=== PATIENT | male | born 1985 | race Caucasian/White ===

== ENCOUNTER 2016-11-20 10:59 | Emergency (ER) | payer MEDICARE, MEDICAID ==
[~2016-11-20] VITALS: Ht 175.3 cm; Wt 86.4 kg
[~2016-11-20 10:59] MED LIST: AMBIEN 5MG TABLE5 MG PO; BISAC-EVAC10 MG RC; CYMBALTA 60MG60 MG PO; KLONOPIN 1MG1 MG PO; MAXZIDE-25MG TA1 TAB PO; MIRALAX PA17 GM/Dose PO; MSIR30 MG PO; MUCINEX 60600 MG/TA1 PO; NEURONTIN800 MG/TAB PO; PRILOSEC 20MG20 MG PO; VALIUM 10MG/25 MG/ML IJ; VESICARE10 MG PO
[2016-11-20] MEDS ORDERED: NORCO 325 MG-51 TAB PO (12:06)
[2016-11-20 14:03] VITALS: BP 145/83; PULSE 71; TEMP 98
== END 2016-11-20 13:52 | disposition home or self-care (01) ==
LOC: COL.ER 10:59
DX: S00.83XA Contusion of other part of head, initial encounter (principal); G43.909 Migraine, unspecified, not intractable, without status migrainosus; W55.12XA Struck by horse, initial encounter; K08.89 Other specified disorders of teeth and supporting structures; I50.9 Heart failure, unspecified
CPT/HCPCS: J1885

== ENCOUNTER 2019-08-04 23:58 | Observation (INO) | payer MEDICARE, MEDICAID ==
[~2019-08-04] VITALS: Ht 175.3 cm; Wt 87.1 kg
[~2019-08-04 23:58] MED LIST changes: +00186-0370-20 IH; +ALEVE 220MG220 MG PO; +AMITRIPTYLINE H50 M1 PO; +CARTIA XT300 MG PO; +CEPHALEXIN500 M1 PO; +HCTZ 25MG TAB25 MG PO; +K-DUR20 MEQ PO; +LASIX 20MG TABL20 MG PO; +LUNESTA2 MG PO; +NORCO 325 MG-51 TAB PO; +RESTORIL 1515 MG/CAP PO; +TOPROL XL 50MG50 MG PO; +TYLENOL 325MG325 MG PO; -VALIUM 10MG/25 MG/ML IJ; +VALIUM 10MG/25 MG/ML PO; +ZANTAC 150MG T150 MG PO
[2019-08-05] VITALS (8 sets, daily range): BP systolic 108–149; BP diastolic 57–87; PULSE 47–73; TEMP 98.1
--- NOTE | 2019-08-05 01:30 | NUR ---
RECEIVED FROM ED PER W/C 34Y/O MALE WITH DX PAIN CONTROL FOR FOREIGN BODY RETAINED IN HIS BLADDER. IS ALERT AND ORIENTED X4. SL TO RIGHT WRIST WITHOUT REDNESS OR SWELLING.
[2019-08-05] MEDS ORDERED: SEROQUEL 1100 MG/TAB PO (01:56)
[2019-08-05] MEDS ORDERED: SEROQUEL 2525 MG/TAB PO (01:56)
[2019-08-05] MEDS ORDERED: VALIUM 5MG T5 MG/TAB PO (01:58)
[2019-08-05] MEDS ORDERED: NAPROSYN500 MG PO (02:03)
[2019-08-05] MEDS ORDERED: DEPAKOTE ER 25250 MG PO (02:04)
[2019-08-05] MEDS ORDERED: DEPAKOTE500 MG PO (02:05)
[2019-08-05] MEDS ORDERED: PRINIVIL10 MG PO (02:06)
--- NOTE | 2019-08-05 03:05 | NUR ---
MEDICATED WITH DILAUDID 0.25MG IVP FOR PAIN 10/10 TO BLADDER AND LEFT FLANK. IVF INFUSING TO RIGHT WRIST WITHOUT REDNESS OR SWELLING.
--- NOTE | 2019-08-05 03:50 | NUR ---
PATIENT REPORTS NO RELIEF WITH DILAUDID, MORPHINE 2MG IVP GIVEN AT THIS TIME.
--- NOTE | 2019-08-05 05:40 | NUR ---
Reports pain to left flank and abdomen 8/, Morphine 2mg IVP at this time.
--- NOTE | 2019-08-05 06:40 | NUR ---
Consent signed for surgery
--- NOTE | 2019-08-05 07:30 | NUR ---
Patient resting in bed at this time. Patient rouses easily and answers questions appropriately. Patient to pre op for suprapubic removal and replacement.
--- NOTE | 2019-08-05 09:35 | NUR ---
Patient returns to floor from PACU via bed. Patient is alert and oriented, answers questions appropriately. Patient complains of pain rated 6/10, administered PRN pain medication per order. Post op checks initated. Call light within reach.
--- NOTE | 2019-08-05 11:00 | NUR ---
Discharge teaching completed. INT removed, catheter intact, hemostasis achieved. Patient and family verbalize understanding and confirm recipt of all valuables and posessions. Patient escorted to ED entrance where he entered a private vehicle.
--- NOTE | 2019-08-05 12:55 | NUR ---
stopped by room several times but patient was not in room.
== END 2019-08-05 11:16 | disposition home or self-care (01) ==
LOC: COL.ER 23:58 → SURG 08-05 01:15
PROVIDERS: ADMIT Urology
DX: T19.1XXA Foreign body in bladder, initial encounter (principal); J45.909 Unspecified asthma, uncomplicated; I11.0 Hypertensive heart disease with heart failure; I50.9 Heart failure, unspecified; Z79.899 Other long term (current) drug therapy; Z88.1 Allergy status to other antibiotic agents; Z88.0 Allergy status to penicillin; N31.9 Neuromuscular dysfunction of bladder, unspecified; F32.9 Major depressive disorder, single episode, unspecified; F41.9 Anxiety disorder, unspecified
CPT/HCPCS: G0378; J0690; J1170; J2270; J2405; J2704; J7030

== ENCOUNTER 2019-10-03 21:11 | Observation (INO) | payer MEDICARE, MEDICAID ==
[~2019-10-03] VITALS: Ht 175.3 cm; Wt 92.8 kg
[~2019-10-03 21:11] MED LIST changes: +DEPAKOTE ER 25250 MG PO; +DEPAKOTE500 MG PO; +NAPROSYN500 MG PO; +PRINIVIL10 MG PO; +SEROQUEL 1100 MG/TAB PO; +SEROQUEL 2525 MG/TAB PO; +VALIUM 5MG T5 MG/TAB PO
--- NOTE | 2019-10-03 22:30 | NUR ---
Patient arrived to medical floor room 305 at this time. Call placed to Dr. De La Torre to notify him of patient's arrival.
[2019-10-03] MEDS ORDERED: MELATONIN5 M1 PO (23:06)
[2019-10-03] MEDS ORDERED: 00186-0370-20 IH (23:08)
[2019-10-03] MEDS ORDERED: PRILOSEC 20MG20 MG PO (23:09)
[2019-10-03] MEDS ORDERED: FLEXERIL 1010 MG/TAB PO (23:10)
[2019-10-03] MEDS ORDERED: ZOFRAN 4MG T4 MG/TAB PO (23:10)
[2019-10-04] VITALS (13 sets, daily range): BP systolic 108–187; BP diastolic 71–94; PULSE 63–111; TEMP 97.8–98.4
--- NOTE | 2019-10-04 00:36 | NUR ---
Patient assessment complete. Given PRN Morphine for pain to chest as requested, as well as nausea. Reports pain is sharp/throbbing to chest, and nothing helps except for pain medication. Alert and oriented x 4, and able to make needs known. Denies SOB and dyspnea. LS CTA. Respirations even and unlabored. HRR. Telemetry in place: sinus. Capillary refill less than 3 seconds. Non-tenting skin turgor. BSAx4. Abdomen soft and non-tender. Has chronic suprapubic catheter-urine clear and yellow. No edema. Planning to have Lexiscan in the morning. Notified patient that he is to be NPO. Patient does have a history of MRSA. Patient put on contact precautions. Notified Dr. De La Torre of history. Patient resting in bed with call light within reach.
[2019-10-04 00:38] LABS: TROPONIN-I < 0.012 ng/mL (0.000-0.035)
--- NOTE | 2019-10-04 02:30 | NUR ---
Patient given PRN Morphine at this time for chest pain, rated as a 5. Denies having any further questions, needs, or concerns at this time. Resting in bed with call light within reach.
--- NOTE | 2019-10-04 05:56 | NUR ---
Patient complaining of leve 6 pain to chest. Given PRN Morphine as requested for pain. No further complaints of pain or discomfort this shift. Has voiced no questions, needs, or concerns. Reminded of lexiscan ordered for today. Has been NPO except took a sip of water with medication. Resting in bed with call light within reach.
[2019-10-04 06:43] LABS: ANION GAP 9 mmol/L (7-16); BLOOD UREA NITROGEN 20 mg/dL (9-20); CALCIUM 8.9 mg/dL (8.4-10.2); CARBON DIOXIDE 28 mmol/L (22-30); CHLORIDE 106 mmol/L (98-107); CHOLESTEROL 185 mg/dL (120-200); CHOLESTEROL RISK RATIO 6.3; CREATININE, serum 1.07 (0.66-1.25); GLUCOSE 80 mg/dL (74-106); HDL CHOLESTEROL 29 mg/dL; LDL CHOLESTEROL 125 mg/dL; POTASSIUM 4.2 mmol/L (3.4-5.0); SODIUM 142 mmol/L (137-145); TRIGLYCERIDE 153 mg/dL
[2019-10-04 06:56] LABS: TROPONIN-I < 0.012 ng/mL (0.000-0.035)
--- NOTE | 2019-10-04 09:13 | NUR ---
Patient is A/O. Complained of 7/10 chest pain. I administed 1mg of morphine. Patient is bed resting. Patient have a generalized severe tremor.
--- NOTE | 2019-10-04 13:12 | NUR ---
Called by the charge attendant that the patient is having a seizure. Upon entry, AYAN Whelan and AYAN Maldonado at bedside. Pt actively convulsing, but talking to staff and oriented. Pt's extremities rigid and some diaphoresis present. Pt reporting he is in pain, PRN Morphine administered. Once pain meds administered pt calmed down and continues to converse with staff appropriately. He reports he has not had a true seizure in years, and that they are "typically much worse". Pt able to drink water without any complications and took Flexeril pill. Marisol were at bedside. Will continue to monitor.
--- NOTE | 2019-10-04 13:38 | NUR ---
Pt sitting up in bed talking with visitor at this time.
--- NOTE | 2019-10-04 14:37 | NUR ---
Initial visit; Patient thanked Offal Trimmer for looking in on him and offering spiritual care, comfort and encouragement.
--- NOTE | 2019-10-04 16:01 | NUR ---
Upon entry to patient room, he was on the phone talking without any tremor. Affect was pleasant and he was responsive. Patient began tremor, and requested for pain medication few minutes later. Stating pain was at 6/10 - Headache and chest pain.
--- NOTE | 2019-10-04 16:34 | NUR ---
TONY met with the patient to complete initial intake. The patient lives alone in [place]. The patient has a CPAP. The patient receives medication managment and cath changes from [facility] in [place] 1x weekly. The patient receives services 4 hours a week from [address] [place] [address]. The patient is in the process of changing PCPs to a provider in [place]. The patient receives medication from [facility] in [place]. The patient does not have advanced directives in the EMR and was not interested in a DPOA-HC form at this time. The patient's parents live in [place]. The patient plans to return home. There are no additional needs at this time.
--- NOTE | 2019-10-04 20:40 | NUR ---
Patient assessed at this time. Alert and oriented x 4, and able to make needs known. Called and requested PRN Morphine. When bringing to room, patient shaking/tremors/rigid. Patient talking to this nurse, stating that he was having tremors from "severe pain." Rated pain as level 9 to chest. Denies SOB and dyspnea. Stated that the only thing that would help was the IV Morphine. Given 1 mg PRN Morphine for pain. As soon as IV medication was given, patient stopped shaking/having tremors. Denies having SOB and dypsnea. LS CTA. Respirations even and unlabored. HRR. Telemetry in place: sinus rhythm. Capillary refill less than 3 seconds. Non-tenting skin turgor. BSAx4. Suprapubic catheter. No edema. Patient stated that he as unable to eat supper due to nausea. Given PRN Zofran as requested for nausea. Patient also given PRN Klonopin for anxiety. Denies having any other questions, needs, or concerns at this time. Resting in bed with call light within reach.
--- NOTE | 2019-10-04 23:40 | NUR ---
Patient complaining of level 7 pain to chest. Given PRN Morphine as requested for pain. Voices no further questions, needs, or concerns. Call light within reach.
--- NOTE | 2019-10-05 02:20 | NUR ---
Patient given PRN Morphine for chest pain at this time. Also complained of nausea, and given PRN Zofran.
[2019-10-05 02:34] VITALS: BP 134/86; PULSE 82; TEMP 98.1
--- NOTE | 2019-10-05 05:36 | NUR ---
Patient complaining of level 6 chest/neck pain. Given PRN Morphine as requested for pain. Denies having any further nausea at this time. Voices no further questions, needs, or concerns at this time. Resting in bed with call light within reach.
[2019-10-05 05:50] VITALS: BP 119/69; PULSE 66; TEMP 97.8
[2019-10-05 06:13] LABS: BASO # 0.1 (0.0-0.2); BASO % 1.3 % (0.0-2.0); EOS # 0.4 (0.0-0.7); EOS % 5.6 % (0-4.0); GRAN # 3.4 (1.4-6.5); GRAN % 52.5 % (42.2-75.2); HEMATOCRIT 41.4 % (42.0-52.0); HEMOGLOBIN 13.1 g/dl (13.5-18.0); LYMPH # 1.9 (1.2-3.4); LYMPH % 29.8 % (20.0-51.0); MEAN CELL VOLUME 89 fl (80.0-100.0); MEAN CORPUSCULAR HEMOGLOBIN 28 pg (27.0-31.0); MEAN CORPUSCULAR HGB CONC 32 g/dl (33.0-37.0); MEAN PLATELET VOLUME 9.2 fl (7.4-10.4); MONO # 0.7 (0.1-0.6); MONO % 10.2 % (1.7-9.3); PLATELET COUNT 254 K/mm3 (130-400); RED BLOOD COUNT 4.67 M/mm3 (4.20-5.60); REDCELL DISTRIBUTION WIDTH-CV 13.8 % (11.5-14.5)
[2019-10-05 06:24] LABS: CREATININE, serum 1.06 (0.66-1.25); POTASSIUM 3.9 mmol/L (3.4-5.0)
--- NOTE | 2019-10-05 06:54 | NUR ---
Report given to day shift nurse.
[2019-10-05 07:37] VITALS: BP 118/73; PULSE 78; TEMP 97.7
--- NOTE | 2019-10-05 10:45 | NUR ---
RT in seeing patient, he is resting in bed, calmly no movements with legs or arms. While administering Ativan prior to MRI patient requesting pain medications for pain to neck, head and back.
--- NOTE | 2019-10-05 11:23 | NUR ---
Patient is out of his room for MRI.
[2019-10-05 12:14] VITALS: BP 128/84; PULSE 83; TEMP 97.7
[2019-10-05] MEDS ORDERED: CARDIZEM CD 12120 MG PO (12:52)
[2019-10-05] MEDS ORDERED: ASPIRIN E.C. 8181 MG PO (13:45)
[2019-10-05 16:41] VITALS: BP 128/84; PULSE 91; TEMP 98.3
--- NOTE | 2019-10-05 17:15 | NUR ---
Derivatives Trader spoke with YORDAN Cedillo who advised patient would like to obtain a walker and wheelchair. TONY met with patient and patient's parents to advise that Medicare will typically only cover either walker or wheelchair, not both. Patient states he would like to obtain wheelchair. TONY presented DME Choice Form and patient chose [facility]. TONY completed order for wheelchair and obtained signature from Kalina Nurse Practitioner. TONY faxed facesheet, order, H&P, and PT note to [facility] who advised they had a wheelchair available for picker machine operator. TONY provided update to patient and patient's parents who state they will leave now to picker machine operator the wheelchair. Patient's parents also expressed concern about their ability to assist patient into his home when they drop him off. Alexy MarroquinLending Activities Supervisor contacted [facility] who will assist patient upon return home. Patient's parents to provide transportation home upon discharge. TONY faxed discharge orders to [facility]. Patient reported his Duff worker Bev plans on stopping by to check in tonight and his Home Health RN is scheduled to come to the home at 0900 tomorrow. No additional needs at this time.
--- NOTE | 2019-10-05 17:36 | NUR ---
Discharge paperwork and instructions reviewed with patient, [facility] dispatch number sent with patient for assistance into the home. Parents taking patient home and have picked up a wheelchair. Pt very anxious about going home and shaking, requesting IV ativan, administered per RAQUEL Dietz. IV to RAC dc'd, catheter tip intact. Pt wheeled out of facility at this time.
== END 2019-10-05 17:38 | disposition home or self-care (01) ==
LOC: MEDICAL 21:11
PROVIDERS: Physician Assistant; ADMIT Hospitalist
DX: R07.9 Chest pain, unspecified (principal); I25.10 Atherosclerotic heart disease of native coronary artery without angina pectoris; I25.2 Old myocardial infarction; G89.29 Other chronic pain; R10.9 Unspecified abdominal pain; I10 Essential (primary) hypertension; R56.9 Unspecified convulsions; F43.10 Post-traumatic stress disorder, unspecified; F41.9 Anxiety disorder, unspecified; I07.1 Rheumatic tricuspid insufficiency; F32.9 Major depressive disorder, single episode, unspecified; Z87.440 Personal history of urinary (tract) infections; Z88.1 Allergy status to other antibiotic agents; Z88.8 Allergy status to other drugs, medicaments and biological substances; Z88.2 Allergy status to sulfonamides; Z88.0 Allergy status to penicillin
CPT/HCPCS: A9500; A9585; G0378; J1650; J2060; J2270; J2405; J2785

== ENCOUNTER → 2019-10-17 | Outpatient (CLI) | payer MEDICARE, MEDICAID ==
[~2019-10-17] MED LIST changes: +ASPIRIN E.C. 8181 MG PO; +CARDIZEM CD 12120 MG PO; +FLEXERIL 1010 MG/TAB PO; +MELATONIN5 M1 PO; +ZOFRAN 4MG T4 MG/TAB PO
== END ==
LOC: BHSO 12:57
DX: F43.10 Post-traumatic stress disorder, unspecified (principal)

== ENCOUNTER 2019-11-03 02:14 | Emergency (ER) | payer MEDICARE, MEDICAID ==
[~2019-11-03] VITALS: Ht 175.3 cm; Wt 86.8 kg
[2019-11-03 02:40] VITALS: BP 136/93; TEMP 98.2
[2019-11-03 03:30] LABS: COLLECTION METHOD IN
[2019-11-03 03:37] LABS: MUCOUS Present /lpf; PH 6 (5-8); SQUAMOUS EPITHELIAL 0-2 /hpf; URINE APPEARANCE Hazy; URINE BACTERIA Rare /hpf; URINE BILIRUBIN Negative (NEGATIVE); URINE BLOOD 1+ (NEGATIVE); URINE COLOR Yellow; URINE GLUCOSE Negative (NEGATIVE); URINE KETONE Negative (NEGATIVE); URINE LEUKOCYTE ESTERASE 2+ (NEGATIVE); URINE NITRATE Negative (NEGATIVE); URINE PROTEIN(semi-quant) 2+ (NEGATIVE); URINE RBC 20-50 /hpf; URINE UROBILINOGEN Negative (NEGATIVE)
[2019-11-03] MEDS ORDERED: MACROBID 1100 MG/CAP PO (03:57)
[2019-11-03 04:23] VITALS: PULSE 104
== END 2019-11-03 04:23 | disposition home or self-care (01) ==
LOC: COL.ER 02:14
PROVIDERS: Physician Assistant
DX: N30.90 Cystitis, unspecified without hematuria (principal); I10 Essential (primary) hypertension; F41.9 Anxiety disorder, unspecified; F32.9 Major depressive disorder, single episode, unspecified; G47.00 Insomnia, unspecified; Z79.82 Long term (current) use of aspirin; Z87.440 Personal history of urinary (tract) infections; Z96.0 Presence of urogenital implants

== ENCOUNTER → 2019-11-17 | Outpatient (CLI) | payer MEDICARE, MEDICAID ==
[~2019-11-17] MED LIST changes: +MACROBID 1100 MG/CAP PO
== END ==
LOC: COL.RAD 12:01
DX: R13.10 Dysphagia, unspecified (principal); R10.9 Unspecified abdominal pain; R11.2 Nausea with vomiting, unspecified; R63.0 Anorexia; R68.81 Early satiety

== ENCOUNTER → 2019-11-24 | Outpatient (CLI) | payer MEDICARE, MEDICAID | LOC: COL.RAD 07:51 | DX: K82.8 Other specified diseases of gallbladder (principal); R11.2 Nausea with vomiting, unspecified; R13.10 Dysphagia, unspecified; R68.81 Early satiety ==

== ENCOUNTER 2019-12-05 06:50 | Inpatient (IN) | payer MEDICARE, MEDICAID ==
[~2019-12-05] VITALS: Ht 175.3 cm; Wt 94.9 kg
[2019-12-05] VITALS (9 sets, daily range): BP systolic 93–121; BP diastolic 52–77; PULSE 60–74; TEMP 97.5–98.6
[2019-12-05] MEDS ORDERED: ASPIRIN 81M81 MG/TA2 PO (08:15)
[2019-12-05] MEDS ORDERED: 00186-0370-20 IH (08:22)
[2019-12-05] MEDS ORDERED: SEROQUEL 200MG200 MG PO (08:23)
[2019-12-05] MEDS ORDERED: PRINIVIL40 MG PO (08:24)
[2019-12-05] MEDS ORDERED: PROTONIX 40MG T40 MG PO (08:25)
[2019-12-05] MEDS ORDERED: BUSPAR DIVIDOSE15 MG PO (08:26)
[2019-12-05] MEDS ORDERED: TOVIAZ4 MG PO (08:27)
[2019-12-05] MEDS ORDERED: TOPROL XL100 MG PO (08:28)
[2019-12-05] MEDS ORDERED: ULTRAM 50MG TAB50 MG PO (08:30)
[2019-12-05] MEDS ORDERED: PHENERGAN 25 TA25 MG PO (08:34)
[2019-12-05] MEDS ORDERED: MOTRIN 600600 MG/TAB PO (11:52)
[2019-12-05] MEDS ORDERED: NORCO 325 MG-51 TAB PO (11:53)
[2019-12-05 22:30] LABS: BASO % 0.2 % (0.0-2.0); GRAN # 8.4 (1.4-6.5); GRAN % 84.7 % (42.2-75.2); HEMATOCRIT 42.4 % (42.0-52.0); HEMOGLOBIN 13.3 g/dl (13.5-18.0); LYMPH # 0.7 (1.2-3.4); LYMPH % 7.2 % (20.0-51.0); MEAN CELL VOLUME 88 fl (80.0-100.0); MEAN CORPUSCULAR HEMOGLOBIN 28 pg (27.0-31.0); MEAN CORPUSCULAR HGB CONC 31 g/dl (33.0-37.0); MEAN PLATELET VOLUME 9.1 fl (7.4-10.4); MONO # 0.7 (0.1-0.6); MONO % 7.5 % (1.7-9.3); PLATELET COUNT 259 K/mm3 (130-400); RED BLOOD COUNT 4.81 M/mm3 (4.20-5.60); REDCELL DISTRIBUTION WIDTH-CV 13.3 % (11.5-14.5)
[2019-12-05 22:42] LABS: ALBUMIN 4.4 gm/dL (3.5-5.0); BILIRUBIN,TOTAL 0.5 mg/dL (0.0-1.0); CREATININE, serum 1.28 (0.66-1.25); MAGNESIUM 2.1 mg/dL (1.6-2.3); POTASSIUM 5.7 mmol/L (3.4-5.0); TOTAL PROTEIN 7.6 gm/dL (6.4-8.2)
[2019-12-05 23:09] LABS: PROLACTIN 14.1 ng/mL (3.7-17.9)
[2019-12-06] VITALS (117 sets, daily range): BP systolic 96–125; BP diastolic 53–65; PULSE 64–82; TEMP 97.7–98.7; O2SAT 94–100
[2019-12-06 06:42] LABS: COLLECTION METHOD IN
[2019-12-06 06:50] LABS: PH 5 (5-8); SQUAMOUS EPITHELIAL 0-2 /hpf; URINE APPEARANCE Clear; URINE BACTERIA Rare /hpf; URINE BILIRUBIN Negative (NEGATIVE); URINE BLOOD Negative (NEGATIVE); URINE COLOR Yellow; URINE GLUCOSE Negative (NEGATIVE); URINE KETONE Trace (NEGATIVE); URINE LEUKOCYTE ESTERASE 2+ (NEGATIVE); URINE NITRATE Negative (NEGATIVE); URINE PROTEIN(semi-quant) 1+ (NEGATIVE); URINE UROBILINOGEN Negative (NEGATIVE)
[2019-12-06 07:02] LABS: CREATININE, serum 1.04 (0.66-1.25); POTASSIUM 3.9 mmol/L (3.4-5.0)
[2019-12-06 07:13] LABS: MUCOUS Present /lpf
[2019-12-06 11:44] LABS: ARTERIAL BLD GAS O2 SATURATION 97.7 % (92-100); ARTERIAL BLD GAS TCO2 CT 22.5; ARTERIAL BLOOD GAS HCO3 21.4 meq/L (22-26); ARTERIAL BLOOD GAS PCO2 32.9 mmHg (35-45); ARTERIAL BLOOD GAS PO2 100.2 mmHg (80-100); ARTERIAL BLOOD GAS pH 7.43 (7.35-7.45)
[2019-12-06 12:11] LABS: BASO % 0.4 % (0.0-2.0); EOS % 0.3 % (0-4.0); GRAN # 7.2 (1.4-6.5); GRAN % 67.6 % (42.2-75.2); HEMATOCRIT 37.2 % (42.0-52.0); HEMOGLOBIN 11.8 g/dl (13.5-18.0); LYMPH # 2.1 (1.2-3.4); LYMPH % 19.4 % (20.0-51.0); MEAN CELL VOLUME 89 fl (80.0-100.0); MEAN CORPUSCULAR HEMOGLOBIN 28 pg (27.0-31.0); MEAN CORPUSCULAR HGB CONC 32 g/dl (33.0-37.0); MEAN PLATELET VOLUME 9.2 fl (7.4-10.4); MONO # 1.3 (0.1-0.6); MONO % 11.8 % (1.7-9.3); PLATELET COUNT 226 K/mm3 (130-400); RED BLOOD COUNT 4.18 M/mm3 (4.20-5.60); REDCELL DISTRIBUTION WIDTH-CV 13.3 % (11.5-14.5)
[2019-12-06 12:13] LABS: INR 1.1 (0.8-3.0); PROTHROMBIN TIME 12.7 SECONDS (9.7-12.8)
[2019-12-06 12:25] LABS: ALBUMIN 3.5 gm/dL (3.5-5.0); BILIRUBIN,TOTAL 0.2 mg/dL (0.0-1.0); CREATININE, serum 1.01 (0.66-1.25); MAGNESIUM 2.1 mg/dL (1.6-2.3); POTASSIUM 3.8 mmol/L (3.4-5.0); TOTAL PROTEIN 6.2 gm/dL (6.4-8.2)
[2019-12-07] VITALS: BP 107/62; PULSE 67; TEMP 97.3
[2019-12-07 04:00] VITALS: BP 110/72; PULSE 56; TEMP 97.4
[2019-12-07 09:03] VITALS: BP 121/88; PULSE 56
[2019-12-07 12:16] VITALS: BP 128/80; PULSE 58; TEMP 98.2
== END 2019-12-07 17:07 | disposition home or self-care (01) | DRG 418 ==
LOC: SDCO 06:50 → SURG 12:44 → SDCO 12-06 11:26 → ICU 12-06 11:28 → EU 12-06 13:30
PROVIDERS: Internal Medicine; Nurse Practitioner Family; Physician Assistant; ADMIT Surgery
PROC: 0FT44ZZ Resection of Gallbladder, Percutaneous Endoscopic Approach (ICD-10-PCS; principal; 2019-12-06)
PROC: BF121ZZ Fluoroscopy of Gallbladder using Low Osmolar Contrast (ICD-10-PCS; 2019-12-06)
DX: K81.1 Chronic cholecystitis (principal); N17.9 Acute kidney failure, unspecified; G40.909 Epilepsy, unspecified, not intractable, without status epilepticus; F32.9 Major depressive disorder, single episode, unspecified; F41.9 Anxiety disorder, unspecified; F43.10 Post-traumatic stress disorder, unspecified; I50.9 Heart failure, unspecified; H53.9 Unspecified visual disturbance; E87.5 Hyperkalemia; N31.9 Neuromuscular dysfunction of bladder, unspecified; I11.0 Hypertensive heart disease with heart failure; G47.33 Obstructive sleep apnea (adult) (pediatric); Z86.73 Personal history of transient ischemic attack (TIA), and cerebral infarction without residual deficits; Z86.711 Personal history of pulmonary embolism; Z79.82 Long term (current) use of aspirin
CPT/HCPCS: OP; 99222; 99233-AI; J0330; J0690; J1100; J1885; J1953; J2060; J2250; J2370; J2405; J2704; J3010; J7030; Q9967

== ENCOUNTER 2020-01-03 00:42 | Emergency (ER) | payer MEDICARE, MEDICAID ==
[~2020-01-03] VITALS: Ht 175.3 cm; Wt 81.8 kg
[~2020-01-03 00:42] MED LIST changes: +ASPIRIN 81M81 MG/TA2 PO; +BUSPAR DIVIDOSE15 MG PO; +MOTRIN 600600 MG/TAB PO; +PHENERGAN 25 TA25 MG PO; +PRINIVIL40 MG PO; +PROTONIX 40MG T40 MG PO; +SEROQUEL 200MG200 MG PO; +TOPROL XL100 MG PO; +TOVIAZ4 MG PO; +ULTRAM 50MG TAB50 MG PO
[2020-01-03 00:47] VITALS: TEMP 98.3
[2020-01-03 01:43] LABS: BASO # 0.1 (0.0-0.2); BASO % 0.9 % (0.0-2.0); EOS # 0.2 (0.0-0.7); EOS % 2.4 % (0-4.0); GRAN # 5.5 (1.4-6.5); GRAN % 69.7 % (42.2-75.2); HEMATOCRIT 43.2 % (42.0-52.0); HEMOGLOBIN 13.9 g/dl (13.5-18.0); LYMPH # 1.3 (1.2-3.4); LYMPH % 15.9 % (20.0-51.0); MEAN CELL VOLUME 87 fl (80.0-100.0); MEAN CORPUSCULAR HEMOGLOBIN 28 pg (27.0-31.0); MEAN CORPUSCULAR HGB CONC 32 g/dl (33.0-37.0); MEAN PLATELET VOLUME 9.1 fl (7.4-10.4); MONO # 0.8 (0.1-0.6); MONO % 10.7 % (1.7-9.3); PLATELET COUNT 215 K/mm3 (130-400); RED BLOOD COUNT 4.98 M/mm3 (4.20-5.60); REDCELL DISTRIBUTION WIDTH-CV 13.7 % (11.5-14.5)
[2020-01-03 01:55] LABS: ALANINE AMINOTRANSFERASE 21 U/L (4-49); ALBUMIN 4.7 gm/dL (3.5-5.0); ALKALINE PHOSPHATASE 70 U/L (50-136); ANION GAP 11 mmol/L (7-16); AST,SGOT 24 U/L (15-37); BILIRUBIN,TOTAL 0.4 mg/dL (0.0-1.0); BLOOD UREA NITROGEN 10 mg/dL (9-20); CALCIUM 9.7 mg/dL (8.4-10.2); CARBON DIOXIDE 25 mmol/L (22-30); CHLORIDE 103 mmol/L (98-107); GLUCOSE 100 mg/dL (74-106); SODIUM 139 mmol/L (137-145)
[2020-01-03 02:00] LABS: COLLECTION METHOD IN
[2020-01-03 02:00] LABS: C-REACTIVE PROTEIN < 0.5 mg/dL (0.0-0.9)
[2020-01-03 02:07] LABS: MUCOUS Present /lpf; PH 5 (5-8); SQUAMOUS EPITHELIAL None Seen /hpf; URINE APPEARANCE Hazy; URINE BACTERIA Rare /hpf; URINE BILIRUBIN Negative (NEGATIVE); URINE BLOOD Negative (NEGATIVE); URINE COLOR Yellow; URINE GLUCOSE Negative (NEGATIVE); URINE KETONE Negative (NEGATIVE); URINE LEUKOCYTE ESTERASE 3+ (NEGATIVE); URINE NITRATE Positive (NEGATIVE); URINE PROTEIN(semi-quant) Negative (NEGATIVE); URINE UROBILINOGEN Negative (NEGATIVE)
[2020-01-03 02:32] VITALS: BP 136/99; PULSE 82
[2020-01-05] MEDS ORDERED: MONUROL 3 GM3 G/PKT PO (14:39)
== END 2020-01-03 02:32 | disposition home or self-care (01) ==
LOC: COL.ER 00:42
PROVIDERS: Nurse Practitioner
DX: N39.0 Urinary tract infection, site not specified (principal); F32.9 Major depressive disorder, single episode, unspecified; F41.9 Anxiety disorder, unspecified; F43.10 Post-traumatic stress disorder, unspecified; I11.0 Hypertensive heart disease with heart failure; I50.9 Heart failure, unspecified; Z96.0 Presence of urogenital implants; Z79.899 Other long term (current) drug therapy; Z79.82 Long term (current) use of aspirin; Z79.51 Long term (current) use of inhaled steroids

== ENCOUNTER → 2020-01-23 | Outpatient (CLI) | payer MEDICARE, MEDICAID ==
[~2020-01-23] MED LIST changes: +MONUROL 3 GM3 G/PKT PO
== END ==
LOC: BHSO 13:23
DX: F43.10 Post-traumatic stress disorder, unspecified (principal)
CPT/HCPCS: G0463

== ENCOUNTER 2020-01-31 18:21 | Emergency (ER) | payer MEDICARE, MEDICAID ==
[~2020-01-31] VITALS: Ht 175.3 cm; Wt 85.9 kg
[2020-01-31 18:35] VITALS: TEMP 99.7
[2020-01-31 19:40] LABS: ALANINE AMINOTRANSFERASE 18 U/L (4-49); ALBUMIN 4.3 gm/dL (3.5-5.0); ALKALINE PHOSPHATASE 54 U/L (50-136); ANION GAP 10 mmol/L (7-16); AST,SGOT 26 U/L (15-37); BILIRUBIN,TOTAL 0.5 mg/dL (0.0-1.0); BLOOD UREA NITROGEN 11 mg/dL (9-20); CALCIUM 9.3 mg/dL (8.4-10.2); CARBON DIOXIDE 25 mmol/L (22-30); CHLORIDE 105 mmol/L (98-107); CREATINE KINASE 118 U/L (55-170); CREATININE, serum 0.94 (0.66-1.25); GLUCOSE 87 mg/dL (74-106); POTASSIUM 3.9 mmol/L (3.4-5.0); SODIUM 140 mmol/L (137-145); TOTAL PROTEIN 7.7 gm/dL (6.4-8.2)
[2020-01-31 19:42] LABS: BASO # 0.1 (0.0-0.2); BASO % 1.1 % (0.0-2.0); EOS # 0.2 (0.0-0.7); EOS % 3.1 % (0-4.0); GRAN # 3.8 (1.4-6.5); HEMATOCRIT 40.6 % (42.0-52.0); LYMPH # 1.5 (1.2-3.4); LYMPH % 23.7 % (20.0-51.0); MEAN CELL VOLUME 87 fl (80.0-100.0); MEAN CORPUSCULAR HEMOGLOBIN 28 pg (27.0-31.0); MEAN CORPUSCULAR HGB CONC 32 g/dl (33.0-37.0); MEAN PLATELET VOLUME 8.9 fl (7.4-10.4); MONO # 0.6 (0.1-0.6); PLATELET COUNT 252 K/mm3 (130-400); RED BLOOD COUNT 4.67 M/mm3 (4.20-5.60); REDCELL DISTRIBUTION WIDTH-CV 13.3 % (11.5-14.5)
[2020-01-31 19:52] LABS: TROPONIN-I < 0.012 ng/mL (0.000-0.035)
[2020-01-31] MEDS ORDERED: NORCO 325 MG-51 TAB PO (20:35)
[2020-01-31 21:29] VITALS: BP 140/95; PULSE 80
== END 2020-01-31 21:29 | disposition home or self-care (01) ==
LOC: COL.ER 18:21
PROVIDERS: Emergency Medicine
DX: R07.81 Pleurodynia (principal); I10 Essential (primary) hypertension; K21.9 Gastro-esophageal reflux disease without esophagitis; F41.9 Anxiety disorder, unspecified; F43.10 Post-traumatic stress disorder, unspecified; Z86.718 Personal history of other venous thrombosis and embolism; Z86.711 Personal history of pulmonary embolism; Z79.82 Long term (current) use of aspirin; Z90.49 Acquired absence of other specified parts of digestive tract
CPT/HCPCS: J1885; J3010; J7030

== ENCOUNTER → 2020-02-07 | Outpatient (CLI) | payer MEDICARE, MEDICAID | LOC: COL.LAB 08:00 | DX: Z20.828 Contact with and (suspected) exposure to other viral communicable diseases (principal) ==

== ENCOUNTER → 2020-02-08 | Outpatient (CLI) | payer MEDICARE, MEDICAID | LOC: COL.RAD 09:58 | DX: K29.70 Gastritis, unspecified, without bleeding (principal); R19.7 Diarrhea, unspecified; Z90.49 Acquired absence of other specified parts of digestive tract | CPT/HCPCS: Q9967 ==

== ENCOUNTER 2020-02-12 08:23 | Day surgery (SDC) | payer MEDICARE, MEDICAID ==
[~2020-02-12] VITALS: Ht 175.3 cm; Wt 87.5 kg
[2020-02-12 08:56] VITALS: BP 115/89; PULSE 77; TEMP 98.7
[2020-02-12 10:20] VITALS: BP 93/67; PULSE 72; TEMP 98
--- NOTE | 2020-02-12 10:20 | NUR ---
Pt returned to [facility]. Ambulated from cart to recliner. VSS-see flowsheet. Pt given pepsi per request. Pt appears drowsy, legs elevated in recliner to rest. Friend brought to room to visit and be present when Dr Salmeron discusses the procedure results. Call light in reach. Pt denies needs at this time.
[2020-02-12 10:35] VITALS: BP 88/72; PULSE 75
[2020-02-12 10:50] VITALS: BP 94/47; PULSE 74
[2020-02-12 11:05] VITALS: BP 96/52; PULSE 72
--- NOTE | 2020-02-12 11:20 | NUR ---
VS remain stable. IV removed with pressure dressing applied to site. Tolerating pepsi. DC teaching completed, pt verbalized understanding. After pt dressed, taken via wheelchair to exit of facility and pt ambulated to private vehicle with friend to drive pt home.
== END 2020-02-12 11:20 | disposition home or self-care (01) ==
LOC: SDCO 08:23
DX: K52.9 Noninfective gastroenteritis and colitis, unspecified (principal); K64.8 Other hemorrhoids; K62.89 Other specified diseases of anus and rectum; R11.2 Nausea with vomiting, unspecified; R19.4 Change in bowel habit; Z88.1 Allergy status to other antibiotic agents; Z88.8 Allergy status to other drugs, medicaments and biological substances; Z90.49 Acquired absence of other specified parts of digestive tract; Z79.82 Long term (current) use of aspirin; Z79.891 Long term (current) use of opiate analgesic; Z11.59 Encounter for screening for other viral diseases
CPT/HCPCS: J2250; J2704; J7030

== ENCOUNTER → 2020-03-18 | Outpatient (CLI) | payer MEDICARE, MEDICAID | LOC: BHSO 10:22 | DX: F43.10 Post-traumatic stress disorder, unspecified (principal) | CPT/HCPCS: G0463 ==

== ENCOUNTER 2020-05-06 18:54 | Emergency (ER) | payer MEDICARE, MEDICAID ==
[~2020-05-06] VITALS: Ht 175.3 cm; Wt 86.4 kg
[2020-05-06 19:03] VITALS: TEMP 98.4
[2020-05-06 19:37] LABS: BASO # 0.1 (0.0-0.2); BASO % 1.5 % (0.0-2.0); EOS # 0.1 (0.0-0.7); EOS % 1.3 % (0-4.0); GRAN % 66.6 % (42.2-75.2); HEMATOCRIT 40.7 % (42.0-52.0); HEMOGLOBIN 13.4 g/dl (13.5-18.0); LYMPH # 1.2 (1.2-3.4); LYMPH % 20.3 % (20.0-51.0); MEAN CELL VOLUME 85 fl (80.0-100.0); MEAN CORPUSCULAR HEMOGLOBIN 28 pg (27.0-31.0); MEAN CORPUSCULAR HGB CONC 33 g/dl (33.0-37.0); MEAN PLATELET VOLUME 8.6 fl (7.4-10.4); MONO # 0.6 (0.1-0.6); MONO % 9.8 % (1.7-9.3); PLATELET COUNT 290 K/mm3 (130-400); REDCELL DISTRIBUTION WIDTH-CV 12.7 % (11.5-14.5)
[2020-05-06 19:47] LABS: ALANINE AMINOTRANSFERASE 18 U/L (4-49); ALBUMIN 4.4 gm/dL (3.5-5.0); ALKALINE PHOSPHATASE 74 U/L (50-136); ANION GAP 11 mmol/L (7-16); AST,SGOT 24 U/L (15-37); BILIRUBIN,TOTAL 0.5 mg/dL (0.0-1.0); BLOOD UREA NITROGEN 5 mg/dL (9-20); CARBON DIOXIDE 28 mmol/L (22-30); CHLORIDE 100 mmol/L (98-107); COLLECTION METHOD IN; CREATININE, serum 1.05 (0.66-1.25); GLUCOSE 94 mg/dL (74-106); SODIUM 139 mmol/L (137-145); TOTAL PROTEIN 7.7 gm/dL (6.4-8.2)
[2020-05-06 19:55] LABS: PH 8 (5-8); SQUAMOUS EPITHELIAL None Seen /hpf; URINE APPEARANCE Clear; URINE BACTERIA Moderate /hpf; URINE BILIRUBIN Negative (NEGATIVE); URINE BLOOD Negative (NEGATIVE); URINE COLOR Straw; URINE GLUCOSE Negative (NEGATIVE); URINE KETONE Negative (NEGATIVE); URINE LEUKOCYTE ESTERASE 2+ (NEGATIVE); URINE NITRATE Negative (NEGATIVE); URINE PROTEIN(semi-quant) Negative (NEGATIVE); URINE RBC 0-2 /hpf; URINE UROBILINOGEN Negative (NEGATIVE)
[2020-05-06 19:58] LABS: TROPONIN-I < 0.012 ng/mL (0.000-0.035)
[2020-05-06] MEDS ORDERED: BACTRIM DS 8001 TAB PO ×2 (20:31)
[2020-05-06 20:47] VITALS: BP 144/86; PULSE 68
== END 2020-05-06 20:45 | disposition home or self-care (01) ==
LOC: COL.ER 18:54
PROVIDERS: Nurse Practitioner Primary Care
DX: R07.89 Other chest pain (principal); N39.0 Urinary tract infection, site not specified; F32.9 Major depressive disorder, single episode, unspecified; F41.9 Anxiety disorder, unspecified; F43.10 Post-traumatic stress disorder, unspecified; I11.0 Hypertensive heart disease with heart failure; I50.9 Heart failure, unspecified; Z79.82 Long term (current) use of aspirin
CPT/HCPCS: J2270; J2405; J7030

== ENCOUNTER 2020-05-14 21:44 | Observation (INO) | payer MEDICARE, MEDICAID ==
[~2020-05-14] VITALS: Ht 175.3 cm; Wt 95.5 kg
[~2020-05-14 21:44] MED LIST changes: +BACTRIM DS 8001 TAB PO
[2020-05-14 22:27] LABS: COLLECTION METHOD IN
[2020-05-14 22:30] LABS: HEMATOCRIT 41.7 % (42.0-52.0); HEMOGLOBIN 13.6 g/dl (13.5-18.0); MEAN CELL VOLUME 86 fl (80.0-100.0); MEAN CORPUSCULAR HEMOGLOBIN 28 pg (27.0-31.0); MEAN CORPUSCULAR HGB CONC 33 g/dl (33.0-37.0); PLATELET COUNT 294 K/mm3 (130-400); RED BLOOD COUNT 4.84 M/mm3 (4.20-5.60); REDCELL DISTRIBUTION WIDTH-CV 13.1 % (11.5-14.5)
[2020-05-14 22:34] LABS: MUCOUS Present /lpf; PH 5 (5-8); SQUAMOUS EPITHELIAL 0-2 /hpf; URINE APPEARANCE Hazy; URINE BACTERIA Rare /hpf; URINE BILIRUBIN Negative (NEGATIVE); URINE BLOOD 3+ (NEGATIVE); URINE COLOR Yellow; URINE GLUCOSE Negative (NEGATIVE); URINE KETONE Negative (NEGATIVE); URINE LEUKOCYTE ESTERASE 2+ (NEGATIVE); URINE NITRATE Negative (NEGATIVE); URINE PROTEIN(semi-quant) 1+ (NEGATIVE); URINE RBC >50 /hpf; URINE UROBILINOGEN Negative (NEGATIVE)
[2020-05-14 22:43] LABS: ALANINE AMINOTRANSFERASE 24 U/L (4-49); ALBUMIN 4.9 gm/dL (3.5-5.0); ALKALINE PHOSPHATASE 66 U/L (50-136); ANION GAP 12 mmol/L (7-16); AST,SGOT 26 U/L (15-37); BILIRUBIN,TOTAL 0.5 mg/dL (0.0-1.0); BLOOD UREA NITROGEN 19 mg/dL (9-20); CALCIUM 9.6 mg/dL (8.4-10.2); CARBON DIOXIDE 24 mmol/L (22-30); CHLORIDE 100 mmol/L (98-107); CREATININE, serum 1.58 (0.66-1.25); GLUCOSE 134 mg/dL (74-106); SODIUM 135 mmol/L (137-145); TOTAL PROTEIN 8.4 gm/dL (6.4-8.2)
[2020-05-14 22:45] LABS: C-REACTIVE PROTEIN < 0.5 mg/dL (0.0-0.9); POTASSIUM 5.8 mmol/L (3.4-5.0)
[2020-05-14 23:27] LABS: BAND 2 % (0-10); LYMPHOCYTE 5 % (20.0-51.0); NEUTROPHILS 90 % (42.0-75.2); PLATELET ESTIMATE NORMAL (NORMAL)
[2020-05-15 01:53] VITALS: BP 129/83; PULSE 104; TEMP 98.1
[2020-05-15 03:05] LABS: CREATININE, serum 1.48 (0.66-1.25); POTASSIUM 5.4 mmol/L (3.4-5.0)
[2020-05-15] MEDS ORDERED: SEROQUEL 2525 MG/TAB PO (03:14)
[2020-05-15 04:00] VITALS: BP 131/67; PULSE 82; TEMP 97.8
--- NOTE | 2020-05-15 05:03 | NUR ---
0115 - RECEIVED REPORT FROM AYAN EUCEDA. 0140 - PT ARRIVED IN ROOM, ADMIT INTIAL DONE. PT COMPLAINING THAT HE IS HAVING SOME ANXIETY AND NEEDS A MEDICATION FOR IT. THIS RN ASKED AYAN EUCEDA IF SHE COULD ED DOCTOR FOR SOME MEDICATION AND MD ORDERD SEROQUEL AND WAS GIVEN TO PT. PT INITIALLY UPSET THAT WE ARE ONLY GIVING HIM SEROQUEL. PER PT, SEROQUEL DOES NOT WORK FOR HIM. THIS RECORDER OF DEEDS TOLD HIM THAT WE ARE GONNA TRY IT FIRST AND WILL RE EVALUATE AFTER AN HOUR OR SO. 0200 - PT COMPLAINING THAT HE COULD NOT STAND THE ROOM HE IS CLAUSTROPHOBIC AND FEELS ISOLATED IN THAT ROOM. THIS WAS RELAYED TO CHARGE NURSE AND PT GOT TRANSFERED TO [facility]. PT THEN WAS COMPLAINING OF PAIN AND WAS GIVEN DILAUDID PER ORDER. PT VERBALZING THAT HE WANTS HIS MEDICATION CHANGE MORPHINE WORKS BETTER FOR HIM AND WANTS SOMETHING FOR HIS ANXIETY WELL. "I GET SEIZURES WHEN I GET TOO ANXIOUS" VERBALIZED BY PT. WHEN RN TOLD PT THAT I WILL CALL DR. CAMARENA, PT GOT WORKED UP AND REFUSING FOR THIS RECORDER OF DEEDS TO CALL . HE IS ALSO REFUSING DR'S CARE AND WANTED TO TALK TO PACKING SUPERVISOR. AFTER TALKING TO PACKING SUPERVISOR, PT AGREED FOR THIS RECORDER OF DEEDS TO CALL DR. CAMARENA AND GOT ORDERS FOR MORPHINE AND ATIVAN WHICH MADE PT HAPPY.
--- NOTE | 2020-05-15 07:40 | NUR ---
Patient resting in bed. Reports increased pain after being up to the bathroom. Request Prn morphine for flank pain & spasms. Suprapubic cath in place to DD. Ivf per orders. He tolerated breakfast, but Reports chronic nausea. Will closely montior.
[2020-05-15 07:42] VITALS: BP 114/62; PULSE 92; TEMP 98.3
--- NOTE | 2020-05-15 10:00 | NUR ---
Patietn feeling anxious, medication per orders. Pre medicated with benydryl prior to given antibioitc to prevent itching.
--- NOTE | 2020-05-15 10:28 | NUR ---
Initial visit; Patient agitated and angry. Wood Hacker attempted to diffuse his anger after she listened to his complaints. Wood Hacker suggested he make his requests known to others in a calmer mor civil way and he will receive better results. Wood Hacker offered a blessing and wished him well. At the time of her departure patient seemed calmer.
--- NOTE | 2020-05-15 10:48 | NUR ---
Insurance Broker met with the patient to complete initial intake. The patient lives alone in [place]. The patient has walking stick and a CPAP. The patient is independent with ADLs. The patient's PCP is Dr. Ashley Donald and patient has medications delivered from [facility] in [place]. The patient does not have advanced directives. He is not and does not have children. His parents are Nestor and Bee # [phone]. The patient is currenlty staying at [facility] and plans to return there are discharge, possibly this day. The patient was concerned about his reoccuring infection since February. TONY and the patient's nurse collaborated the above information. TONY contacted [facility] and they do confirm that they have a bed for the patient to return to if he discharges this day. There are no additional needs at this time.
[2020-05-15 11:45] VITALS: BP 124/55; PULSE 85; TEMP 98.6
--- NOTE | 2020-05-15 11:45 | NUR ---
Spoke with [facility] telehealth case manager, they will pick patient up in 10 minutes. All paper work completed. Patient frustrated & upset with plan of care. had a lengthy discussion with patient. Spoke with Pearl wolf- she also spoke with patient. Reviewed discharge paperwork with patient, He had minimal interest. Int x2 DC. Patient denies any further education on suprapubic cath. Patient ambulated out with all belongings.
--- NOTE | 2020-05-15 11:53 | NUR ---
Patient reports elevated pain, continues to refuse azo. Reports flomax did not help. He continues to be frustrated. Wanted to speak with social work i had let them know.
--- NOTE | 2020-05-15 12:45 | NUR ---
Ride from [facility] here to take patietn back to the crisis center.
== END 2020-05-15 16:08 | disposition psychiatric hospital, planned readmission (93) ==
LOC: COL.ER 21:44 → SURG 23:08 → JCC 23:12
PROVIDERS: Emergency Medicine; ADMIT Urology
DX: R10.2 Pelvic and perineal pain (principal); Z88.0 Allergy status to penicillin; Z88.8 Allergy status to other drugs, medicaments and biological substances; Z88.1 Allergy status to other antibiotic agents
CPT/HCPCS: G0378; J0610; J0692; J1170; J1200; J1815; J1940; J2060; J2270; J2405; J3260; J7030

== ENCOUNTER → 2020-05-23 | Outpatient (CLI) | payer MEDICARE, MEDICAID ==
[2020-05-23 12:18] LABS: COLLECTION METHOD CLEAN CATCH
[2020-05-23 12:27] LABS: PH 6 (5-8); SQUAMOUS EPITHELIAL None Seen /hpf; URINE APPEARANCE Clear; URINE BACTERIA Rare /hpf; URINE BILIRUBIN Negative (NEGATIVE); URINE BLOOD 2+ (NEGATIVE); URINE COLOR Yellow; URINE GLUCOSE Negative (NEGATIVE); URINE KETONE Negative (NEGATIVE); URINE LEUKOCYTE ESTERASE 1+ (NEGATIVE); URINE NITRATE Negative (NEGATIVE); URINE PROTEIN(semi-quant) Negative (NEGATIVE); URINE UROBILINOGEN Negative (NEGATIVE)
== END ==
LOC: COL.LAB 11:46
PROVIDERS: Internal Medicine Infectious Disease
DX: N39.0 Urinary tract infection, site not specified (principal); Z86.14 Personal history of Methicillin resistant Staphylococcus aureus infection; Z86.19 Personal history of other infectious and parasitic diseases

== ENCOUNTER → 2020-06-03 | Outpatient (CLI) | payer MEDICARE, MEDICAID ==
[2020-06-03 17:23] LABS: COLLECTION METHOD IN
[2020-06-03 17:49] LABS: MUCOUS Present /lpf; PH 6 (5-8); SQUAMOUS EPITHELIAL None Seen /hpf; URINE APPEARANCE Hazy; URINE BACTERIA Rare /hpf; URINE BILIRUBIN Negative (NEGATIVE); URINE BLOOD Negative (NEGATIVE); URINE COLOR Yellow; URINE GLUCOSE Negative (NEGATIVE); URINE KETONE Negative (NEGATIVE); URINE LEUKOCYTE ESTERASE 3+ (NEGATIVE); URINE NITRATE Negative (NEGATIVE); URINE PROTEIN(semi-quant) Negative (NEGATIVE); URINE RBC 0-2 /hpf; URINE UROBILINOGEN Negative (NEGATIVE); URINE WBC >50 /hpf
== END ==
LOC: COL.LAB 12:17
PROVIDERS: Nurse Practitioner
DX: N39.0 Urinary tract infection, site not specified (principal); Z86.14 Personal history of Methicillin resistant Staphylococcus aureus infection; Z86.19 Personal history of other infectious and parasitic diseases

== ENCOUNTER 2020-06-04 21:34 | Outpatient (RCR) | payer MEDICARE, MEDICAID ==
[2020-06-04 21:38] VITALS: BP 140/81; PULSE 81; TEMP 97.3
[2020-06-07] MEDS ORDERED: INVANZ INJ1 G/VIAL IV (08:57)
== END 2020-06-11 15:46 ==
LOC: EUO 06-05 21:34
DX: N39.0 Urinary tract infection, site not specified (principal); N31.9 Neuromuscular dysfunction of bladder, unspecified; F32.9 Major depressive disorder, single episode, unspecified

== ENCOUNTER 2020-06-16 21:05 | Emergency (ER) | payer MEDICARE, MEDICAID ==
[~2020-06-16] VITALS: Ht 175.3 cm; Wt 92.7 kg
[~2020-06-16 21:05] MED LIST changes: +INVANZ INJ1 G/VIAL IV
[2020-06-16 21:25] VITALS: BP 155/104; TEMP 98.1
[2020-06-16 23:29] VITALS: PULSE 93
== END 2020-06-16 23:32 | disposition home or self-care (01) ==
LOC: COL.ER 21:05
DX: G43.909 Migraine, unspecified, not intractable, without status migrainosus (principal); I50.9 Heart failure, unspecified; I10 Essential (primary) hypertension; I25.2 Old myocardial infarction; I25.10 Atherosclerotic heart disease of native coronary artery without angina pectoris; F17.290 Nicotine dependence, other tobacco product, uncomplicated; K21.9 Gastro-esophageal reflux disease without esophagitis; F41.9 Anxiety disorder, unspecified; F32.9 Major depressive disorder, single episode, unspecified; F43.10 Post-traumatic stress disorder, unspecified; R56.9 Unspecified convulsions; Z86.73 Personal history of transient ischemic attack (TIA), and cerebral infarction without residual deficits; Z95.828 Presence of other vascular implants and grafts; Z88.0 Allergy status to penicillin; Z88.1 Allergy status to other antibiotic agents; Z88.8 Allergy status to other drugs, medicaments and biological substances; Z79.82 Long term (current) use of aspirin
CPT/HCPCS: J1200; J1885; J2765; J3010; J7030

== ENCOUNTER 2020-06-18 10:06 | Emergency (ER) | payer MEDICARE, MEDICAID ==
[~2020-06-18] VITALS: Ht 175.3 cm; Wt 92.7 kg
[2020-06-18 10:09] VITALS: TEMP 98.4
[2020-06-18 11:12] LABS: ALANINE AMINOTRANSFERASE 44 U/L (4-49); ALBUMIN 4.5 gm/dL (3.5-5.0); ALKALINE PHOSPHATASE 83 U/L (50-136); ANION GAP 11 mmol/L (7-16); AST,SGOT 41 U/L (15-37); BILIRUBIN,TOTAL 0.3 mg/dL (0.0-1.0); BLOOD UREA NITROGEN 9 mg/dL (9-20); CALCIUM 9.5 mg/dL (8.4-10.2); CARBON DIOXIDE 26 mmol/L (22-30); CHLORIDE 106 mmol/L (98-107); CREATININE, serum 1.12 (0.66-1.25); GLUCOSE 119 mg/dL (74-106); POTASSIUM 4.1 mmol/L (3.4-5.0); SODIUM 142 mmol/L (137-145); TOTAL PROTEIN 7.7 gm/dL (6.4-8.2)
[2020-06-18 11:15] LABS: BASO # 0.1 (0.0-0.2); BASO % 1.4 % (0.0-2.0); EOS # 0.4 (0.0-0.7); EOS % 6.4 % (0-4.0); GRAN # 3.6 (1.4-6.5); GRAN % 55.4 % (42.2-75.2); HEMATOCRIT 42.6 % (42.0-52.0); HEMOGLOBIN 13.9 g/dl (13.5-18.0); LYMPH # 1.6 (1.2-3.4); LYMPH % 24.8 % (20.0-51.0); MEAN CELL VOLUME 85 fl (80.0-100.0); MEAN CORPUSCULAR HEMOGLOBIN 28 pg (27.0-31.0); MEAN CORPUSCULAR HGB CONC 33 g/dl (33.0-37.0); MEAN PLATELET VOLUME 8.9 fl (7.4-10.4); MONO # 0.8 (0.1-0.6); MONO % 11.7 % (1.7-9.3); PLATELET COUNT 226 K/mm3 (130-400); RED BLOOD COUNT 4.99 M/mm3 (4.20-5.60); REDCELL DISTRIBUTION WIDTH-CV 13.1 % (11.5-14.5)
[2020-06-18 11:29] LABS: TROPONIN-I < 0.012 ng/mL (0.000-0.035)
[2020-06-18] MEDS ORDERED: ULTRAM 50MG TAB50 MG PO (18:38)
[2020-06-18 19:59] VITALS: BP 133/98; PULSE 99
== END 2020-06-18 19:59 | disposition home or self-care (01) ==
LOC: COL.ER 10:06
PROVIDERS: Nurse Practitioner Primary Care
DX: R07.9 Chest pain, unspecified (principal); I16.0 Hypertensive urgency; I10 Essential (primary) hypertension; F41.9 Anxiety disorder, unspecified; I25.2 Old myocardial infarction; Z86.73 Personal history of transient ischemic attack (TIA), and cerebral infarction without residual deficits; Z96.0 Presence of urogenital implants; Z79.82 Long term (current) use of aspirin
CPT/HCPCS: J0360; J1200; J2060; J2270; J7030; Q9967

== ENCOUNTER → 2020-06-19 | Outpatient (CLI) | payer MEDICARE, MEDICAID ==
[~2020-06-19] MED LIST changes: +NORVASC 5MG5 MG/TAB PO
== END ==
LOC: BHSO 10:07
DX: F43.10 Post-traumatic stress disorder, unspecified (principal)
CPT/HCPCS: G0463

== ENCOUNTER → 2020-06-27 | Outpatient (CLI) | payer MEDICARE, MEDICAID | LOC: ZCOL.LAB 10:40 | DX: N39.0 Urinary tract infection, site not specified (principal); N31.9 Neuromuscular dysfunction of bladder, unspecified; Z95.9 Presence of cardiac and vascular implant and graft, unspecified ==

== ENCOUNTER → 2020-07-11 | Outpatient (CLI) | payer MEDICARE, MEDICAID ==
[~2020-07-11] MED LIST changes: +ALDACTONE50 MG PO; +CARAFATE 1GM1 G PO; +CUBICIN 500MG500 MG IV; +LEVSIN0.125 M1 PO; +MINIPRESS2 MG PO; +NORVASC 10MG10 MG PO; +NURTEC ODT75 MG PO
== END ==
LOC: ZCOL.LAB 13:21
DX: Z01.89 Encounter for other specified special examinations (principal)

== ENCOUNTER 2020-07-15 13:00 | Outpatient (RCR) | payer MEDICARE, MEDICAID ==
[2020-06-04 09:15] VITALS: BP 113/80; PULSE 67; TEMP 96.8
[2020-06-05 07:39] VITALS: BP 126/80; PULSE 76; TEMP 97.8
[2020-06-05 18:06] VITALS: BP 143/93; PULSE 72; TEMP 98.3
[2020-06-06 07:00] VITALS: BP 117/80; PULSE 62; TEMP 98.5
[2020-06-06 18:16] VITALS: BP 131/82; PULSE 63; TEMP 98.1
[2020-06-07 08:09] VITALS: BP 121/76; PULSE 64; TEMP 97.7
[2020-06-08 08:39] VITALS: BP 143/86; PULSE 57; TEMP 98.2
[2020-06-09 09:31] VITALS: BP 132/83; PULSE 58; TEMP 97.9
[2020-06-10 10:02] VITALS: BP 159/90; PULSE 69; TEMP 98.2
[2020-06-10 10:44] LABS: BASO # 0.1 (0.0-0.2); BASO % 1.4 % (0.0-2.0); EOS # 0.2 (0.0-0.7); EOS % 4.1 % (0-4.0); GRAN # 2.5 (1.4-6.5); GRAN % 49.4 % (42.2-75.2); HEMATOCRIT 40.7 % (42.0-52.0); HEMOGLOBIN 13.3 g/dl (13.5-18.0); LYMPH # 1.7 (1.2-3.4); LYMPH % 33.5 % (20.0-51.0); MEAN CELL VOLUME 85 fl (80.0-100.0); MEAN CORPUSCULAR HEMOGLOBIN 28 pg (27.0-31.0); MEAN CORPUSCULAR HGB CONC 33 g/dl (33.0-37.0); MONO # 0.6 (0.1-0.6); PLATELET COUNT 230 K/mm3 (130-400); RED BLOOD COUNT 4.78 M/mm3 (4.20-5.60); REDCELL DISTRIBUTION WIDTH-CV 13.2 % (11.5-14.5)
[2020-06-10 11:02] LABS: ALANINE AMINOTRANSFERASE 19 U/L (4-49); ALBUMIN 3.9 gm/dL (3.5-5.0); ALKALINE PHOSPHATASE 72 U/L (50-136); ANION GAP 6 mmol/L (7-16); AST,SGOT 31 U/L (15-37); BILIRUBIN,TOTAL 0.3 mg/dL (0.0-1.0); BLOOD UREA NITROGEN 12 mg/dL (9-20); C-REACTIVE PROTEIN < 0.5 mg/dL (0.0-0.9); CALCIUM 8.3 mg/dL (8.4-10.2); CARBON DIOXIDE 27 mmol/L (22-30); CHLORIDE 107 mmol/L (98-107); CREATININE, serum 1.05 (0.66-1.25); GLUCOSE 103 mg/dL (74-106); POTASSIUM 3.9 mmol/L (3.4-5.0); SODIUM 140 mmol/L (137-145); TOTAL PROTEIN 6.7 gm/dL (6.4-8.2)
[2020-06-10 11:14] LABS: ERYTHROCYTE SEDIMENTATION RATE 1 mm/hr (0-15)
[2020-06-11 08:33] VITALS: BP 130/79; PULSE 78; TEMP 98.2
--- NOTE | 2020-06-11 09:15 | NUR ---
PICC intact right upper arm. Insertion site cleansed with ChloraPrep 1 with sterile, chlorhexidine impregnated disc applied, skin prep, stat lock and Tegaderm applied. No signs or symptoms of IV complications noted. no concerns voiced. wrapped with jose daniel to protect catheter. to return to [facility] as scheduled for IV antibiotic and cares. voiced understanding of instructions.
[2020-06-12 08:27] VITALS: BP 148/97; PULSE 65; TEMP 98.1
[2020-06-13 08:51] VITALS: BP 146/92; PULSE 68; TEMP 97.9
[2020-06-14 15:58] VITALS: BP 142/98; PULSE 61; TEMP 97.8
[2020-06-15 09:45] VITALS: BP 142/87; PULSE 70; TEMP 98.1
[2020-06-16 09:11] VITALS: BP 127/78; PULSE 75; TEMP 98.3
[2020-06-17 08:54] VITALS: BP 147/102; PULSE 98; TEMP 98.1
[2020-06-17 08:56] LABS: BASO # 0.1 (0.0-0.2); BASO % 1.9 % (0.0-2.0); EOS # 0.3 (0.0-0.7); EOS % 5.5 % (0-4.0); GRAN # 2.8 (1.4-6.5); GRAN % 49.2 % (42.2-75.2); HEMATOCRIT 42.5 % (42.0-52.0); HEMOGLOBIN 13.9 g/dl (13.5-18.0); LYMPH # 1.8 (1.2-3.4); LYMPH % 31.7 % (20.0-51.0); MEAN CELL VOLUME 85 fl (80.0-100.0); MEAN CORPUSCULAR HEMOGLOBIN 28 pg (27.0-31.0); MEAN CORPUSCULAR HGB CONC 33 g/dl (33.0-37.0); MEAN PLATELET VOLUME 8.8 fl (7.4-10.4); MONO # 0.6 (0.1-0.6); MONO % 11.3 % (1.7-9.3); PLATELET COUNT 240 K/mm3 (130-400); RED BLOOD COUNT 5.03 M/mm3 (4.20-5.60); REDCELL DISTRIBUTION WIDTH-CV 13.1 % (11.5-14.5)
[2020-06-17 09:10] LABS: ALANINE AMINOTRANSFERASE 35 U/L (4-49); ALBUMIN 4.1 gm/dL (3.5-5.0); ALKALINE PHOSPHATASE 64 U/L (50-136); ANION GAP 8 mmol/L (7-16); AST,SGOT 42 U/L (15-37); BILIRUBIN,TOTAL 0.3 mg/dL (0.0-1.0); BLOOD UREA NITROGEN 9 mg/dL (9-20); CARBON DIOXIDE 27 mmol/L (22-30); CHLORIDE 104 mmol/L (98-107); CREATININE, serum 1.09 (0.66-1.25); GLUCOSE 101 mg/dL (74-106); POTASSIUM 3.8 mmol/L (3.4-5.0); SODIUM 139 mmol/L (137-145); TOTAL PROTEIN 7.2 gm/dL (6.4-8.2)
[2020-06-17 09:11] LABS: C-REACTIVE PROTEIN < 0.5 mg/dL (0.0-0.9)
[2020-06-17 09:18] LABS: ERYTHROCYTE SEDIMENTATION RATE 1 mm/hr (0-15)
--- NOTE | 2020-06-18 09:20 | NUR ---
PICC intact right upper arm with sterile dressing change done with insertio site cleansed with chloraprep x 1, chlorhexidine impregnated disk applied, ski prep, stat lock, and tegaderm applied. no signs or symptoms of IV complications noted. no concerns voiced. re-wrapped with an jose daniel to protect catheter. to continue with cares in [facility]. voiced understanding of instructions.
[2020-06-18 09:48] VITALS: BP 141/92; PULSE 109; TEMP 98.7
--- NOTE | 2020-06-18 10:10 | NUR ---
Pt c/o chest pain reports "feels like something is sitting on my chest." Per pt pain is rated at a 6 on 0-10 scale.Pt requests to go to ER. Vitals are as follows 161/108,pulse 110,96% on room air.IV fluids atopeed,420ml in.Pt taken to ED,report to Layla Wakefield.
[2020-06-19 08:49] VITALS: BP 134/93; PULSE 104; TEMP 98.3
[2020-06-19 10:30] LABS: COLLECTION METHOD IN
[2020-06-19 10:38] LABS: PH 7 (5-8); SQUAMOUS EPITHELIAL None Seen /hpf; URINE APPEARANCE Clear; URINE BACTERIA Rare /hpf; URINE BILIRUBIN Negative (NEGATIVE); URINE BLOOD 1+ (NEGATIVE); URINE COLOR Straw; URINE GLUCOSE Negative (NEGATIVE); URINE KETONE Negative (NEGATIVE); URINE LEUKOCYTE ESTERASE Negative (NEGATIVE); URINE NITRATE Negative (NEGATIVE); URINE PROTEIN(semi-quant) Negative (NEGATIVE); URINE RBC 0-2 /hpf; URINE UROBILINOGEN Negative (NEGATIVE); URINE WBC 0-2 /hpf
[2020-06-20 09:47] LABS: CHOLESTEROL 184 mg/dL (120-200); CHOLESTEROL RISK RATIO 6.8; HDL CHOLESTEROL 27 mg/dL; LDL CHOLESTEROL 70 mg/dL; TRIGLYCERIDE 436 mg/dL
--- NOTE | 2020-06-21 16:51 | NUR ---
I called Bernadette and left voicemail message informing her of new order to maintain PICC line until further notice. I informed her that i have pencilled in an appt 06/25/20Wednesday to keep up with dressing and cap changes. I asked her to call back to confirm or change time if needed.
--- NOTE | 2020-06-25 10:00 | NUR ---
Here for cares. PICC intact right upper arm with sterile dressing change done with insertion site cleansed with chloraprep x 1, chlorhexidine impregnated disk applied, skin prep, stat lock, and tegaderm applied. no signs or symptoms of IV complications noted. no concerns voiced. wrapped with an jose daniel to protect cathter.
[2020-06-25 10:40] VITALS: BP 155/91; PULSE 114; TEMP 98.5
[2020-06-27 16:18] LABS: COLLECTION METHOD IN
[2020-06-27 16:27] LABS: AMORPHOUS CRYSTAL Present /uL; MUCOUS Present /lpf; PH 7 (5-8); SQUAMOUS EPITHELIAL 0-2 /hpf; URINE APPEARANCE Hazy; URINE BACTERIA Moderate /hpf; URINE BILIRUBIN Negative (NEGATIVE); URINE BLOOD Negative (NEGATIVE); URINE COLOR Yellow; URINE GLUCOSE Negative (NEGATIVE); URINE KETONE Negative (NEGATIVE); URINE LEUKOCYTE ESTERASE 2+ (NEGATIVE); URINE NITRATE Negative (NEGATIVE); URINE PROTEIN(semi-quant) 1+ (NEGATIVE); URINE UROBILINOGEN Negative (NEGATIVE)
[2020-06-27 17:03] VITALS: BP 154/98; PULSE 90; TEMP 98.4
[2020-06-28 08:30] VITALS: BP 136/85; PULSE 92; TEMP 98.5
[2020-06-29 09:30] VITALS: BP 149/98; PULSE 80; TEMP 97.8
[2020-06-30 09:13] VITALS: BP 141/92; PULSE 93; TEMP 97.8
[2020-07-01 10:00] VITALS: BP 158/83; PULSE 108; TEMP 98.8
[2020-07-01 10:10] LABS: BASO # 0.1 (0.0-0.2); EOS # 0.2 (0.0-0.7); EOS % 3.8 % (0-4.0); GRAN # 3.5 (1.4-6.5); HEMATOCRIT 37.6 % (42.0-52.0); HEMOGLOBIN 12.4 g/dl (13.5-18.0); LYMPH # 1.5 (1.2-3.4); LYMPH % 25.7 % (20.0-51.0); MEAN CELL VOLUME 84 fl (80.0-100.0); MEAN CORPUSCULAR HEMOGLOBIN 28 pg (27.0-31.0); MEAN CORPUSCULAR HGB CONC 33 g/dl (33.0-37.0); MEAN PLATELET VOLUME 8.8 fl (7.4-10.4); MONO # 0.5 (0.1-0.6); PLATELET COUNT 292 K/mm3 (130-400); RED BLOOD COUNT 4.48 M/mm3 (4.20-5.60); REDCELL DISTRIBUTION WIDTH-CV 12.9 % (11.5-14.5)
[2020-07-01 10:24] LABS: ALANINE AMINOTRANSFERASE 25 U/L (4-49); ALKALINE PHOSPHATASE 73 U/L (50-136); ANION GAP 10 mmol/L (7-16); AST,SGOT 25 U/L (15-37); BILIRUBIN,TOTAL 0.3 mg/dL (0.0-1.0); BLOOD UREA NITROGEN 12 mg/dL (9-20); CALCIUM 8.7 mg/dL (8.4-10.2); CARBON DIOXIDE 24 mmol/L (22-30); CHLORIDE 105 mmol/L (98-107); CREATININE, serum 1.09 (0.66-1.25); GLUCOSE 113 mg/dL (74-106); POTASSIUM 3.3 mmol/L (3.4-5.0); SODIUM 139 mmol/L (137-145); TOTAL PROTEIN 6.9 gm/dL (6.4-8.2)
[2020-07-01 10:30] LABS: C-REACTIVE PROTEIN < 0.5 mg/dL (0.0-0.9)
[2020-07-01 10:57] LABS: ERYTHROCYTE SEDIMENTATION RATE 2 mm/hr (0-15)
[2020-07-02 08:57] VITALS: BP 134/91; PULSE 80; TEMP 97.5
[2020-07-03 08:26] VITALS: BP 111/77; PULSE 73; TEMP 98.3
[2020-07-04 08:44] VITALS: BP 112/75; PULSE 81; TEMP 98.8
[2020-07-05 14:31] VITALS: BP 108/66; PULSE 77; TEMP 98.7
[2020-07-06 09:04] VITALS: BP 117/74; PULSE 93; TEMP 98.1
[2020-07-07 08:57] VITALS: BP 112/68; PULSE 90; TEMP 98.2
[2020-07-08 11:10] LABS: COLLECTION METHOD CLEAN CATCH
[2020-07-08 11:28] LABS: MUCOUS Present /lpf; PH 5 (5-8); SQUAMOUS EPITHELIAL None Seen /hpf; URINE APPEARANCE Hazy; URINE BACTERIA None Seen /hpf; URINE BILIRUBIN Negative (NEGATIVE); URINE BLOOD 1+ (NEGATIVE); URINE COLOR Yellow; URINE GLUCOSE Negative (NEGATIVE); URINE KETONE Negative (NEGATIVE); URINE LEUKOCYTE ESTERASE Trace (NEGATIVE); URINE NITRATE Negative (NEGATIVE); URINE PROTEIN(semi-quant) Negative (NEGATIVE); URINE UROBILINOGEN Negative (NEGATIVE)
--- NOTE | 2020-07-08 11:32 | NUR ---
Pt requested to not get iv fluids today.clarified with reji at office plan of care.office will call pt with us results.keep picc line in place until further notice.
[2020-07-08 11:37] VITALS: BP 132/87; PULSE 73; TEMP 98.1
[~2020-07-15] VITALS: Ht 175.3 cm; Wt 94.0 kg
[2020-07-15 14:09] VITALS: BP 135/98; PULSE 94; TEMP 98.4
== END 2020-07-15 16:24 | disposition home or self-care (01) ==
LOC: EUO 13:00
PROVIDERS: Internal Medicine Infectious Disease; Nurse Practitioner
DX: Z45.2 Encounter for adjustment and management of vascular access device (principal); F32.9 Major depressive disorder, single episode, unspecified; N31.9 Neuromuscular dysfunction of bladder, unspecified; N30.20 Other chronic cystitis without hematuria; I10 Essential (primary) hypertension; G43.001 Migraine without aura, not intractable, with status migrainosus; E66.9 Obesity, unspecified
CPT/HCPCS: C1751; J0692; J0878; J1335; J7040

== ENCOUNTER 2020-07-16 23:12 | Emergency (ER) | payer MEDICARE, MEDICAID ==
[~2020-07-16] VITALS: Ht 175.3 cm; Wt 90.9 kg
[2020-07-16 23:48] VITALS: BP 114/83; TEMP 98.7
[2020-07-17 00:45] VITALS: PULSE 95
== END 2020-07-17 01:10 | disposition home or self-care (01) ==
LOC: COL.ER 23:12
DX: L23.1 Allergic contact dermatitis due to adhesives (principal); Z86.73 Personal history of transient ischemic attack (TIA), and cerebral infarction without residual deficits; Z95.828 Presence of other vascular implants and grafts; Z88.0 Allergy status to penicillin; Z88.1 Allergy status to other antibiotic agents; Z88.8 Allergy status to other drugs, medicaments and biological substances; Z79.82 Long term (current) use of aspirin

== ENCOUNTER 2020-07-25 17:06 | Emergency (ER) | payer MEDICARE, MEDICAID ==
[~2020-07-25] VITALS: Ht 175.3 cm; Wt 90.9 kg
[2020-07-25 17:27] VITALS: TEMP 98.4
[2020-07-25 18:06] LABS: MUCOUS Present /lpf; PH 7 (5-8); SQUAMOUS EPITHELIAL None Seen /hpf; URINE APPEARANCE Cloudy; URINE BACTERIA Rare /hpf; URINE BILIRUBIN Negative (NEGATIVE); URINE BLOOD Negative (NEGATIVE); URINE COLOR Yellow; URINE GLUCOSE Negative (NEGATIVE); URINE KETONE Negative (NEGATIVE); URINE LEUKOCYTE ESTERASE 3+ (NEGATIVE); URINE NITRATE Positive (NEGATIVE); URINE PROTEIN(semi-quant) Negative (NEGATIVE); URINE RBC 0-2 /hpf; URINE UROBILINOGEN Negative (NEGATIVE)
[2020-07-25 20:22] VITALS: BP 118/79; PULSE 80
[2020-07-26 11:39] LABS: COLLECTION METHOD IN
== END 2020-07-25 20:22 | disposition home or self-care (01) ==
LOC: COL.ER 17:06
PROVIDERS: Emergency Medicine
DX: T83.511A Infection and inflammatory reaction due to indwelling urethral catheter, initial encounter (principal); N39.0 Urinary tract infection, site not specified; F32.9 Major depressive disorder, single episode, unspecified; F43.10 Post-traumatic stress disorder, unspecified; Z86.73 Personal history of transient ischemic attack (TIA), and cerebral infarction without residual deficits; Z96.0 Presence of urogenital implants; Z87.891 Personal history of nicotine dependence; Z88.0 Allergy status to penicillin; Z88.1 Allergy status to other antibiotic agents; Z88.8 Allergy status to other drugs, medicaments and biological substances; Y84.6 Urinary catheterization as the cause of abnormal reaction of the patient, or of later complication, without mention of misadventure at the time of the procedure; Z79.82 Long term (current) use of aspirin
CPT/HCPCS: J0878

== ENCOUNTER 2020-07-26 23:15 | Emergency (ER) | payer MEDICARE, MEDICAID ==
[~2020-07-26] VITALS: Ht 175.3 cm; Wt 90.9 kg
[2020-07-27 00:06] VITALS: TEMP 99.4
[2020-07-27 01:14] LABS: BASO # 0.1 (0.0-0.2); BASO % 1.2 % (0.0-2.0); EOS # 0.2 (0.0-0.7); EOS % 2.1 % (0-4.0); GRAN # 5.2 (1.4-6.5); GRAN % 64.1 % (42.2-75.2); HEMATOCRIT 40.3 % (42.0-52.0); HEMOGLOBIN 13.2 g/dl (13.5-18.0); LYMPH # 1.8 (1.2-3.4); LYMPH % 21.9 % (20.0-51.0); MEAN CELL VOLUME 84 fl (80.0-100.0); MEAN CORPUSCULAR HEMOGLOBIN 28 pg (27.0-31.0); MEAN CORPUSCULAR HGB CONC 33 g/dl (33.0-37.0); MEAN PLATELET VOLUME 8.8 fl (7.4-10.4); MONO # 0.8 (0.1-0.6); PLATELET COUNT 306 K/mm3 (130-400); RED BLOOD COUNT 4.79 M/mm3 (4.20-5.60); REDCELL DISTRIBUTION WIDTH-CV 13.1 % (11.5-14.5)
[2020-07-27 01:24] LABS: TRICYCLIC ANTIDEPRESS URINE POSITIVE
[2020-07-27 01:34] LABS: ALANINE AMINOTRANSFERASE 31 U/L (4-49); ALBUMIN 4.4 gm/dL (3.5-5.0); ALKALINE PHOSPHATASE 69 U/L (50-136); ANION GAP 9 mmol/L (7-16); AST,SGOT 31 U/L (15-37); BILIRUBIN,TOTAL 0.3 mg/dL (0.0-1.0); BLOOD UREA NITROGEN 11 mg/dL (9-20); CALCIUM 8.8 mg/dL (8.4-10.2); CARBON DIOXIDE 27 mmol/L (22-30); CHLORIDE 102 mmol/L (98-107); CREATININE, serum 1.12 (0.66-1.25); GLUCOSE 84 mg/dL (74-106); POTASSIUM 3.9 mmol/L (3.4-5.0); SODIUM 138 mmol/L (137-145); TOTAL PROTEIN 7.6 gm/dL (6.4-8.2)
[2020-07-27 01:35] LABS: ACETAMINOPHEN < 10 ug/mL (10-30); ALCOHOL(ethanol),MEDICAL < 10 mg/dL; SALICYLATE < 1.0 mg/dL
[2020-07-27 03:55] VITALS: BP 144/70; PULSE 78
== END 2020-07-27 03:55 | disposition home or self-care (01) ==
LOC: COL.ER 23:15
PROVIDERS: Physician Assistant
DX: S32.519A Fracture of superior rim of unspecified pubis, initial encounter for closed fracture (principal); F39 Unspecified mood [affective] disorder; R82.79 Other abnormal findings on microbiological examination of urine; I25.10 Atherosclerotic heart disease of native coronary artery without angina pectoris; I25.2 Old myocardial infarction; F43.10 Post-traumatic stress disorder, unspecified; F41.9 Anxiety disorder, unspecified; F32.9 Major depressive disorder, single episode, unspecified; I10 Essential (primary) hypertension; K21.9 Gastro-esophageal reflux disease without esophagitis; Z88.0 Allergy status to penicillin; Z86.73 Personal history of transient ischemic attack (TIA), and cerebral infarction without residual deficits; Z88.1 Allergy status to other antibiotic agents; Z88.8 Allergy status to other drugs, medicaments and biological substances; Z79.82 Long term (current) use of aspirin; Z79.51 Long term (current) use of inhaled steroids
CPT/HCPCS: J1170

== ENCOUNTER 2020-07-30 08:00 | Outpatient (RCR) | payer MEDICARE, MEDICAID ==
[2020-07-26 10:39] VITALS: BP 102/68; PULSE 82; TEMP 100.7
[2020-07-27 08:24] VITALS: BP 123/80; PULSE 106; TEMP 97.5
[2020-07-28 08:16] VITALS: BP 128/86; PULSE 109
[2020-07-29 08:54] LABS: CREATINE KINASE 95 U/L (55-170)
[2020-07-29 08:55] LABS: C-REACTIVE PROTEIN < 0.5 mg/dL (0.0-0.9)
[2020-07-29 09:04] LABS: BASO # 0.1 (0.0-0.2); BASO % 1.1 % (0.0-2.0); EOS # 0.3 (0.0-0.7); EOS % 3.7 % (0-4.0); GRAN # 4.4 (1.4-6.5); GRAN % 59.6 % (42.2-75.2); HEMATOCRIT 40.2 % (42.0-52.0); HEMOGLOBIN 13.1 g/dl (13.5-18.0); LYMPH # 2.1 (1.2-3.4); LYMPH % 28.3 % (20.0-51.0); MEAN CELL VOLUME 85 fl (80.0-100.0); MEAN CORPUSCULAR HEMOGLOBIN 28 pg (27.0-31.0); MEAN CORPUSCULAR HGB CONC 33 g/dl (33.0-37.0); MONO # 0.5 (0.1-0.6); MONO % 6.8 % (1.7-9.3); PLATELET COUNT 321 K/mm3 (130-400); RED BLOOD COUNT 4.76 M/mm3 (4.20-5.60); REDCELL DISTRIBUTION WIDTH-CV 13.3 % (11.5-14.5)
[2020-07-29 09:48] LABS: ERYTHROCYTE SEDIMENTATION RATE 1 mm/hr (0-15)
[2020-07-30 08:00] VITALS: BP 113/73; PULSE 82; TEMP 98.2
[2020-07-30 08:01] LABS: COLLECTION METHOD IN
[2020-07-30 08:29] LABS: PH 8 (5-8); SQUAMOUS EPITHELIAL None Seen /hpf; URINE APPEARANCE Cloudy; URINE BACTERIA Rare /hpf; URINE BILIRUBIN Negative (NEGATIVE); URINE BLOOD 1+ (NEGATIVE); URINE COLOR Yellow; URINE GLUCOSE Negative (NEGATIVE); URINE KETONE Negative (NEGATIVE); URINE LEUKOCYTE ESTERASE 3+ (NEGATIVE); URINE NITRATE Positive (NEGATIVE); URINE PROTEIN(semi-quant) 1+ (NEGATIVE); URINE RBC 0-2 /hpf; URINE UROBILINOGEN Negative (NEGATIVE)
== END 2020-07-31 15:48 | disposition still patient (30) ==
LOC: EUO 08:00
PROVIDERS: Internal Medicine Infectious Disease
DX: B99.9 Unspecified infectious disease (principal)
CPT/HCPCS: J0878

== ENCOUNTER 2020-08-03 17:05 | Emergency (ER) | payer MEDICARE, MEDICAID ==
[~2020-08-03] VITALS: Ht 175.3 cm; Wt 97.7 kg
[2020-08-03 17:08] VITALS: BP 123/72; TEMP 97.6
[2020-08-03 17:41] LABS: COLLECTION METHOD IN
[2020-08-03 17:44] LABS: BASO # 0.1 (0.0-0.2); BASO % 1.3 % (0.0-2.0); EOS # 0.2 (0.0-0.7); EOS % 3.1 % (0-4.0); GRAN # 3.2 (1.4-6.5); GRAN % 51.1 % (42.2-75.2); HEMATOCRIT 44.1 % (42.0-52.0); HEMOGLOBIN 14.4 g/dl (13.5-18.0); LYMPH % 31.7 % (20.0-51.0); MEAN CELL VOLUME 84 fl (80.0-100.0); MEAN CORPUSCULAR HEMOGLOBIN 28 pg (27.0-31.0); MEAN CORPUSCULAR HGB CONC 33 g/dl (33.0-37.0); MONO # 0.7 (0.1-0.6); PLATELET COUNT 277 K/mm3 (130-400); RED BLOOD COUNT 5.23 M/mm3 (4.20-5.60); REDCELL DISTRIBUTION WIDTH-CV 13.2 % (11.5-14.5)
[2020-08-03 17:45] LABS: PROTHROMBIN TIME 11.3 SECONDS (9.7-12.8)
[2020-08-03 17:48] LABS: PH 7 (5-8); SQUAMOUS EPITHELIAL None Seen /hpf; URINE APPEARANCE Clear; URINE BACTERIA None Seen /hpf; URINE BILIRUBIN Negative (NEGATIVE); URINE BLOOD Negative (NEGATIVE); URINE COLOR Colorless; URINE GLUCOSE Negative (NEGATIVE); URINE KETONE Negative (NEGATIVE); URINE LEUKOCYTE ESTERASE Trace (NEGATIVE); URINE NITRATE Negative (NEGATIVE); URINE PROTEIN(semi-quant) Negative (NEGATIVE); URINE RBC None Seen /hpf; URINE UROBILINOGEN Negative (NEGATIVE)
[2020-08-03 17:58] LABS: ALANINE AMINOTRANSFERASE 31 U/L (4-49); ALBUMIN 4.5 gm/dL (3.5-5.0); ALKALINE PHOSPHATASE 62 U/L (50-136); ANION GAP 11 mmol/L (7-16); AST,SGOT 27 U/L (15-37); BILIRUBIN,TOTAL 0.6 mg/dL (0.0-1.0); BLOOD UREA NITROGEN 13 mg/dL (9-20); CALCIUM 9.4 mg/dL (8.4-10.2); CARBON DIOXIDE 27 mmol/L (22-30); CHLORIDE 102 mmol/L (98-107); CREATININE, serum 1.07 (0.66-1.25); GLUCOSE 91 mg/dL (74-106); LIPASE 60 U/L (23-300); POTASSIUM 4.2 mmol/L (3.4-5.0); SODIUM 139 mmol/L (137-145); TOTAL PROTEIN 7.9 gm/dL (6.4-8.2)
[2020-08-03 17:59] LABS: C-REACTIVE PROTEIN < 0.5 mg/dL (0.0-0.9)
[2020-08-03] MEDS ORDERED: LEVSIN 0.10.125 MG/T PO (18:48)
[2020-08-03] MEDS ORDERED: MACROBID 1100 MG/CAP PO (18:48)
[2020-08-03 19:00] VITALS: PULSE 80
[2020-08-06] MEDS ORDERED: DOXYCYCLINE HY100 MG PO (17:27)
== END 2020-08-03 19:00 | disposition home or self-care (01) ==
LOC: COL.ER 17:05
PROVIDERS: Emergency Medicine
DX: N32.89 Other specified disorders of bladder (principal); F41.9 Anxiety disorder, unspecified; F32.9 Major depressive disorder, single episode, unspecified; F39 Unspecified mood [affective] disorder; N31.9 Neuromuscular dysfunction of bladder, unspecified; I10 Essential (primary) hypertension; I25.10 Atherosclerotic heart disease of native coronary artery without angina pectoris; I25.2 Old myocardial infarction; F43.10 Post-traumatic stress disorder, unspecified; G40.909 Epilepsy, unspecified, not intractable, without status epilepticus; Z86.73 Personal history of transient ischemic attack (TIA), and cerebral infarction without residual deficits; Z88.0 Allergy status to penicillin; Z88.8 Allergy status to other drugs, medicaments and biological substances; Z88.1 Allergy status to other antibiotic agents; Z87.891 Personal history of nicotine dependence; Z79.82 Long term (current) use of aspirin; Z79.51 Long term (current) use of inhaled steroids
CPT/HCPCS: J1170; J2060; J2405

== ENCOUNTER 2020-08-08 19:30 | Emergency (ER) | payer MEDICARE, MEDICAID ==
[~2020-08-08] VITALS: Ht 175.3 cm; Wt 97.7 kg
[~2020-08-08 19:30] MED LIST changes: +DOXYCYCLINE HY100 MG PO; +LEVSIN 0.10.125 MG/T PO
[2020-08-08 20:27] LABS: COLLECTION METHOD IN
[2020-08-08] MEDS ORDERED: CLEOCIN HC150 MG/CAP PO (20:31)
[2020-08-08 21:08] LABS: MUCOUS Present /lpf; PH 7 (5-8); SQUAMOUS EPITHELIAL None Seen /hpf; URINE APPEARANCE Hazy; URINE BACTERIA Rare /hpf; URINE BILIRUBIN Negative (NEGATIVE); URINE BLOOD 1+ (NEGATIVE); URINE COLOR Yellow; URINE GLUCOSE Negative (NEGATIVE); URINE KETONE Negative (NEGATIVE); URINE LEUKOCYTE ESTERASE 3+ (NEGATIVE); URINE NITRATE Positive (NEGATIVE); URINE PROTEIN(semi-quant) Negative (NEGATIVE); URINE UROBILINOGEN Negative (NEGATIVE)
[2020-08-08 22:48] LABS: BASO # 0.1 (0.0-0.2); BASO % 1.3 % (0.0-2.0); EOS # 0.2 (0.0-0.7); EOS % 1.6 % (0-4.0); GRAN # 6.3 (1.4-6.5); GRAN % 68.2 % (42.2-75.2); HEMATOCRIT 39.9 % (42.0-52.0); LYMPH # 1.6 (1.2-3.4); LYMPH % 17.6 % (20.0-51.0); MEAN CELL VOLUME 84 fl (80.0-100.0); MEAN CORPUSCULAR HEMOGLOBIN 28 pg (27.0-31.0); MEAN CORPUSCULAR HGB CONC 33 g/dl (33.0-37.0); MEAN PLATELET VOLUME 8.9 fl (7.4-10.4); PLATELET COUNT 248 K/mm3 (130-400); RED BLOOD COUNT 4.73 M/mm3 (4.20-5.60); REDCELL DISTRIBUTION WIDTH-CV 13.5 % (11.5-14.5)
[2020-08-08 23:00] LABS: ALBUMIN 4.5 gm/dL (3.5-5.0); BILIRUBIN,TOTAL 0.3 mg/dL (0.0-1.0); CALCIUM 9.2 mg/dL (8.4-10.2); CREATININE, serum 1.2 (0.66-1.25); POTASSIUM 4.2 mmol/L (3.4-5.0); TOTAL PROTEIN 7.9 gm/dL (6.4-8.2)
[2020-08-08] MEDS ORDERED: BACTRIM DS 8001 TAB PO (23:06)
[2020-08-08 23:33] VITALS: TEMP 99.4
[2020-08-09 00:15] VITALS: BP 139/89; PULSE 95
== END 2020-08-09 00:15 | disposition home or self-care (01) ==
LOC: COL.ER 19:30
PROVIDERS: Family Medicine
DX: N39.0 Urinary tract infection, site not specified (principal); I25.2 Old myocardial infarction; Z20.828 Contact with and (suspected) exposure to other viral communicable diseases; Z86.73 Personal history of transient ischemic attack (TIA), and cerebral infarction without residual deficits; Z88.0 Allergy status to penicillin; Z88.1 Allergy status to other antibiotic agents; Z88.8 Allergy status to other drugs, medicaments and biological substances; Z79.82 Long term (current) use of aspirin; Z79.51 Long term (current) use of inhaled steroids
CPT/HCPCS: J1170; J7030

== ENCOUNTER 2020-08-10 01:26 | Emergency (ER) | payer MEDICARE, MEDICAID ==
[~2020-08-10] VITALS: Ht 175.3 cm; Wt 97.7 kg
[~2020-08-10 01:26] MED LIST changes: +CLEOCIN HC150 MG/CAP PO
[2020-08-10 01:39] VITALS: TEMP 100.8
[2020-08-10 02:55] LABS: BASO # 0.1 (0.0-0.2); BASO % 1.3 % (0.0-2.0); EOS # 0.2 (0.0-0.7); EOS % 2.1 % (0-4.0); GRAN # 3.8 (1.4-6.5); HEMOGLOBIN 12.7 g/dl (13.5-18.0); LYMPH % 29.1 % (20.0-51.0); MEAN CELL VOLUME 85 fl (80.0-100.0); MEAN CORPUSCULAR HEMOGLOBIN 27 pg (27.0-31.0); MEAN CORPUSCULAR HGB CONC 32 g/dl (33.0-37.0); MEAN PLATELET VOLUME 9.4 fl (7.4-10.4); MONO # 0.9 (0.1-0.6); MONO % 13.1 % (1.7-9.3); PLATELET COUNT 221 K/mm3 (130-400); REDCELL DISTRIBUTION WIDTH-CV 13.4 % (11.5-14.5)
[2020-08-10 03:07] LABS: ALANINE AMINOTRANSFERASE 58 U/L (4-49); ALBUMIN 4.5 gm/dL (3.5-5.0); ALKALINE PHOSPHATASE 72 U/L (50-136); ANION GAP 13 mmol/L (7-16); AST,SGOT 48 U/L (15-37); BILIRUBIN,TOTAL 0.5 mg/dL (0.0-1.0); BLOOD UREA NITROGEN 11 mg/dL (9-20); C-REACTIVE PROTEIN 2.3 mg/dL (0.0-0.9); CALCIUM 9.1 mg/dL (8.4-10.2); CARBON DIOXIDE 23 mmol/L (22-30); CHLORIDE 100 mmol/L (98-107); GLUCOSE 125 mg/dL (74-106); POTASSIUM 3.9 mmol/L (3.4-5.0); SODIUM 136 mmol/L (137-145); TOTAL PROTEIN 7.7 gm/dL (6.4-8.2)
[2020-08-10 05:05] LABS: TROPONIN-I < 0.012 ng/mL (0.000-0.035)
[2020-08-10 06:50] VITALS: BP 123/81; PULSE 102
== END 2020-08-10 06:50 | disposition home or self-care (01) ==
LOC: COL.ER 01:26
PROVIDERS: Emergency Medicine
DX: R50.9 Fever, unspecified (principal); M79.10 Myalgia, unspecified site; K08.89 Other specified disorders of teeth and supporting structures; R00.0 Tachycardia, unspecified; I10 Essential (primary) hypertension; I25.10 Atherosclerotic heart disease of native coronary artery without angina pectoris; F43.10 Post-traumatic stress disorder, unspecified; F41.9 Anxiety disorder, unspecified; F32.9 Major depressive disorder, single episode, unspecified; G40.909 Epilepsy, unspecified, not intractable, without status epilepticus; Z86.73 Personal history of transient ischemic attack (TIA), and cerebral infarction without residual deficits; Z88.0 Allergy status to penicillin; Z88.1 Allergy status to other antibiotic agents; Z88.8 Allergy status to other drugs, medicaments and biological substances; Z79.82 Long term (current) use of aspirin; Z79.51 Long term (current) use of inhaled steroids
CPT/HCPCS: J1170; J2060; J2405; J3010; J7030

== ENCOUNTER 2020-08-23 07:31 | Outpatient (RCR) | payer MEDICARE, MEDICAID ==
--- NOTE | 2020-08-20 08:25 | NUR ---
Lee was called twice this morning. Was scheduled at 0700 has not shown for appointment for antibiotics. Vancomycin is twice a day. Message left for patient of importance of keeping appointments.
[2020-08-20 10:44] VITALS: BP 126/86; PULSE 63; TEMP 98.2
[2020-08-20 18:05] VITALS: BP 130/80; PULSE 113; TEMP 99.1
[2020-08-20 19:23] VITALS: BP 129/95; PULSE 111; TEMP 98.6
[2020-08-21 09:04] VITALS: BP 134/87; PULSE 114; TEMP 98.1
[2020-08-21 17:54] VITALS: BP 132/83; PULSE 101; TEMP 98.3
[2020-08-21 19:05] VITALS: BP 130/90; PULSE 107
[2020-08-22 08:00] VITALS: BP 132/79; PULSE 108; TEMP 98.4
[2020-08-22 17:44] VITALS: BP 129/75; PULSE 92; TEMP 98.6
[~2020-08-23] VITALS: Ht 175.3 cm; Wt 96.9 kg
[~2020-08-23 07:31] MED LIST changes: +AZO URINARY PAI95 MG PO; +LEVAQUIN 5500 MG/TA1 PO; +MINIPRESS 5M5 MG/CAP PO; -MINIPRESS2 MG PO; +VANCO 1.51.5 GM/250 IV; +ZESTRIL 5MG5 MG PO
[2020-08-24 08:51] VITALS: BP 131/81; PULSE 100; TEMP 98.3
[2020-08-25 07:17] VITALS: BP 123/70; PULSE 92; TEMP 98
[2021-03-17] MEDS ORDERED: TRELEGY ELLIPT1 EACH IH (18:37)
== END 2020-08-26 | disposition home or self-care (01) ==
LOC: COL.ER → EUO 17:35 → COL.ER 08-25 06:41 → EUO 08-25 06:41 → COL.ER 08-25 06:49
DX: N39.0 Urinary tract infection, site not specified (principal)
CPT/HCPCS: J1335; J3370; J7050

== ENCOUNTER 2020-09-04 13:05 | Outpatient (RCR) | payer MEDICARE, MEDICAID ==
[2020-08-29 08:19] VITALS: BP 140/94; PULSE 86; TEMP 98.6
[2020-08-29 08:27] LABS: BASO # 0.1 (0.0-0.2); BASO % 1.5 % (0.0-2.0); EOS # 0.2 (0.0-0.7); EOS % 3.2 % (0-4.0); GRAN # 2.8 (1.4-6.5); HEMATOCRIT 39.3 % (42.0-52.0); HEMOGLOBIN 12.9 g/dl (13.5-18.0); LYMPH # 2.2 (1.2-3.4); LYMPH % 36.5 % (20.0-51.0); MEAN CELL VOLUME 82 fl (80.0-100.0); MEAN CORPUSCULAR HEMOGLOBIN 27 pg (27.0-31.0); MEAN CORPUSCULAR HGB CONC 33 g/dl (33.0-37.0); MEAN PLATELET VOLUME 8.6 fl (7.4-10.4); MONO # 0.8 (0.1-0.6); MONO % 12.5 % (1.7-9.3); PLATELET COUNT 348 K/mm3 (130-400); RED BLOOD COUNT 4.79 M/mm3 (4.20-5.60); REDCELL DISTRIBUTION WIDTH-CV 13.1 % (11.5-14.5)
[2020-08-29 08:37] LABS: ALANINE AMINOTRANSFERASE 26 U/L (4-49); ALBUMIN 4.1 gm/dL (3.5-5.0); ALKALINE PHOSPHATASE 67 U/L (50-136); ANION GAP 10 mmol/L (7-16); AST,SGOT 23 U/L (15-37); BILIRUBIN,TOTAL 0.3 mg/dL (0.0-1.0); BLOOD UREA NITROGEN 10 mg/dL (9-20); CALCIUM 8.8 mg/dL (8.4-10.2); CARBON DIOXIDE 26 mmol/L (22-30); CHLORIDE 104 mmol/L (98-107); CREATININE, serum 0.93 (0.66-1.25); GLUCOSE 83 mg/dL (74-106); POTASSIUM 3.6 mmol/L (3.4-5.0); SODIUM 139 mmol/L (137-145); TOTAL PROTEIN 7.2 gm/dL (6.4-8.2)
[2020-08-29 08:39] LABS: C-REACTIVE PROTEIN < 0.5 mg/dL (0.0-0.9)
[2020-08-29 08:57] LABS: ERYTHROCYTE SEDIMENTATION RATE 6 mm/hr (0-15)
[~2020-09-04 13:05] MED LIST changes: -MINIPRESS 5M5 MG/CAP PO; +MINIPRESS2 MG PO
[2020-09-04 14:34] VITALS: BP 156/87; PULSE 89; TEMP 99
[2020-09-06] MEDS ORDERED: ULTRAM 50MG TAB50 MG PO (13:47)
[2020-09-06] MEDS ORDERED: MOTRIN 600600 MG/TAB PO (13:48)
--- NOTE | 2020-09-06 14:05 | NUR ---
Order sent to Ambulatory for PICC removal from FLAQUITO Jenkins..
== END 2020-09-06 14:06 | disposition home or self-care (01) ==
LOC: EUO 13:05
PROVIDERS: Internal Medicine Infectious Disease
DX: B99.9 Unspecified infectious disease (principal)

== ENCOUNTER 2020-09-06 11:09 | Day surgery (SDC) | payer MEDICARE, MEDICAID ==
[~2020-09-06] VITALS: Ht 175.3 cm; Wt 94.2 kg
[2020-09-06 11:21] VITALS: BP 141/94; PULSE 82; TEMP 97.8
--- NOTE | 2020-09-06 11:29 | NUR ---
Patient answered positively to question #2 of the suicide screening questions. He states that he was "feeling very anxious with his health issues" and that he was just discharged from the [facility] here in [place] yesterday (09/05/2020) after being there for 1.5 months. He states that he is "feeling much better" and answers no to the remaining screening questions. Hina Ureña in social work is contacted regarding how to proceed. She states to provide a list of the mental health resources available to him. This will be printed with the patient's discharge paperwork and discussed.
[2020-09-06 13:36] VITALS: BP 88/47; PULSE 82; TEMP 99.5
--- NOTE | 2020-09-06 13:36 | NUR ---
Patient arrives to [facility] via cart, accompanied by MINK SLICER Tosha and PRESLEY Kebede. He is sleepy, but awakens to voice. Surgical incision is clean/dry/intact. Monitoring is applied -VSS on room air.
[2020-09-06] MEDS ORDERED: ULTRAM 50MG TAB50 MG PO (13:47)
[2020-09-06] MEDS ORDERED: MOTRIN 600600 MG/TAB PO (13:48)
[2020-09-06 13:50] VITALS: BP 88/48; PULSE 76
--- NOTE | 2020-09-06 13:50 | NUR ---
Patient is asleep. He awakens to light touch. Shakes head to no to needs at this time.
[2020-09-06 14:05] VITALS: BP 93/53; PULSE 73
--- NOTE | 2020-09-06 14:05 | NUR ---
VSS on room air. Resting comfortably.
--- NOTE | 2020-09-06 14:11 | NUR ---
Patient puts on his call light and states "I'm ready to go home". Discharge criteria are discussed with the patient, along with the need to have his PICC line D/C prior to discharge. He is agreeable with the discharge plan. He is offered and receives ice cream and a Sprite to drink.
[2020-09-06 14:20] VITALS: BP 99/68; PULSE 77
--- NOTE | 2020-09-06 14:20 | NUR ---
Patient is tolerating PO well. He is asking if he can go. He asks if he can come to the express unit tomorrow to have his PICC line pulled, instead of doing it today. It is explained that it is ordered to be done today, as a request from ID. He is agreeable to this. minerva Marroquineditor house organ is called and will come when able to DC PICC line.
[2020-09-06 14:45] VITALS: BP 98/71; PULSE 76
--- NOTE | 2020-09-06 14:45 | NUR ---
VSS and WNL on room air. Patient's PICC Line has been removed by AYAN Marroquin. Dressing clean/dry/intact. Patient has changed to his clothing independently. Discharge instructions are discussed. He denies any questions and verbalizes understanding. He is provided discharge instructions on his PICC line removal as well. He is escorted to the exit via wheelchair by AYAN Monterroso. He is discharged to home with ride in private vehicle at 1445.
== END 2020-09-06 14:45 | disposition home or self-care (01) ==
LOC: SDCO 11:09
DX: N39.0 Urinary tract infection, site not specified (principal); F41.9 Anxiety disorder, unspecified; F32.9 Major depressive disorder, single episode, unspecified; G47.33 Obstructive sleep apnea (adult) (pediatric); I10 Essential (primary) hypertension; J45.909 Unspecified asthma, uncomplicated; I25.10 Atherosclerotic heart disease of native coronary artery without angina pectoris; I25.2 Old myocardial infarction; F43.10 Post-traumatic stress disorder, unspecified; K21.9 Gastro-esophageal reflux disease without esophagitis; F17.210 Nicotine dependence, cigarettes, uncomplicated; Z86.73 Personal history of transient ischemic attack (TIA), and cerebral infarction without residual deficits; Z79.82 Long term (current) use of aspirin; Z79.84 Long term (current) use of oral hypoglycemic drugs; Z86.14 Personal history of Methicillin resistant Staphylococcus aureus infection; Z88.8 Allergy status to other drugs, medicaments and biological substances; Z88.1 Allergy status to other antibiotic agents; Z88.2 Allergy status to sulfonamides; G89.29 Other chronic pain
CPT/HCPCS: J0690; J1644; J2704; J7120

== ENCOUNTER 2020-09-29 01:51 | Emergency (ER) | payer MEDICARE, MEDICAID ==
[~2020-09-29] VITALS: Ht 175.3 cm; Wt 93.6 kg
[2020-09-29 02:13] VITALS: TEMP 98.1
[2020-09-29 02:41] LABS: COLLECTION METHOD IN
[2020-09-29 02:44] LABS: BASO # 0.1 (0.0-0.2); BASO % 1.3 % (0.0-2.0); EOS # 0.1 (0.0-0.7); EOS % 0.7 % (0-4.0); GRAN # 5.5 (1.4-6.5); GRAN % 66.6 % (42.2-75.2); HEMOGLOBIN 14.2 g/dl (13.5-18.0); LYMPH # 1.8 (1.2-3.4); LYMPH % 22.2 % (20.0-51.0); MEAN CELL VOLUME 82 fl (80.0-100.0); MEAN CORPUSCULAR HEMOGLOBIN 26 pg (27.0-31.0); MEAN CORPUSCULAR HGB CONC 32 g/dl (33.0-37.0); MEAN PLATELET VOLUME 8.6 fl (7.4-10.4); MONO # 0.7 (0.1-0.6); PLATELET COUNT 341 K/mm3 (130-400); RED BLOOD COUNT 5.39 M/mm3 (4.20-5.60); REDCELL DISTRIBUTION WIDTH-CV 13.6 % (11.5-14.5)
[2020-09-29 02:50] LABS: MUCOUS Present /lpf; PH 5 (5-8); SQUAMOUS EPITHELIAL None Seen /hpf; URINE APPEARANCE Hazy; URINE BACTERIA None Seen /hpf; URINE BILIRUBIN Negative (NEGATIVE); URINE BLOOD Negative (NEGATIVE); URINE COLOR Yellow; URINE GLUCOSE Negative (NEGATIVE); URINE KETONE Negative (NEGATIVE); URINE LEUKOCYTE ESTERASE 1+ (NEGATIVE); URINE NITRATE Positive (NEGATIVE); URINE PROTEIN(semi-quant) 1+ (NEGATIVE); URINE UROBILINOGEN Negative (NEGATIVE); URINE WBC 20-50 /hpf
[2020-09-29 02:56] LABS: CALCIUM 9.7 mg/dL (8.4-10.2); CREATININE, serum 1.13 (0.66-1.25)
[2020-09-29 04:05] VITALS: BP 137/86; PULSE 80
[2020-09-29] MEDS ORDERED: MACROBID 1100 MG/CAP PO (04:24)
== END 2020-09-29 04:40 | disposition home or self-care (01) ==
LOC: COL.ER 01:51
PROVIDERS: Emergency Medicine
DX: N39.0 Urinary tract infection, site not specified (principal); R56.9 Unspecified convulsions; I25.2 Old myocardial infarction; Z86.73 Personal history of transient ischemic attack (TIA), and cerebral infarction without residual deficits; Z93.6 Other artificial openings of urinary tract status; Z95.828 Presence of other vascular implants and grafts; Z88.0 Allergy status to penicillin; Z88.1 Allergy status to other antibiotic agents; Z88.8 Allergy status to other drugs, medicaments and biological substances; Z79.82 Long term (current) use of aspirin
CPT/HCPCS: J2270; J7030

== ENCOUNTER 2020-10-03 13:54 | Outpatient (RCR) | payer MEDICARE, MEDICAID ==
[~2020-10-03 13:54] MED LIST changes: +MINIPRESS 5M5 MG/CAP PO; -MINIPRESS2 MG PO
[2020-10-03 15:14] VITALS: BP 152/116; PULSE 107; TEMP 98.7
[2021-03-17] MEDS ORDERED: TRELEGY ELLIPT1 EACH IH (18:37)
== END 2020-10-03 15:15 | disposition home or self-care (01) ==
LOC: EUO 13:54
DX: I87.8 Other specified disorders of veins (principal); N30.90 Cystitis, unspecified without hematuria
CPT/HCPCS: J1644

== ENCOUNTER 2020-10-10 07:34 | Day surgery (SDC) | payer MEDICARE, MEDICAID ==
[~2020-10-10] VITALS: Ht 175.3 cm; Wt 93.6 kg
[2020-10-10] MEDS ORDERED: ZESTRIL 20MG TA20 MG PO (08:13)
[2020-10-10] MEDS ORDERED: GLUCOPHAGE XR500 M1 PO (08:16)
[2020-10-10] MEDS ORDERED: ALDACTAZIDE 501 TAB PO (08:32)
[2020-10-10] MEDS ORDERED: ESTROGEN (08:35)
[2020-10-10 09:45] VITALS: BP 91/51; PULSE 77
--- NOTE | 2020-10-10 09:45 | NUR ---
PATIENT TO [facility] POST PROCEDURE VIA CART BY JR BOTELLO. PATIENT AMBULATORY TO CHAIR WITH 2 PERSON ASSIST. PATIENT VERY GROGGY. MADE COMFORTABLE IN CHAIR, GIVEN WARM BLANKETS. VITAL SIGNS TAKEN, WNR, ALTHOUGH B/P A BIT LOW. REPORT FROM JR BOTELLO.
[2020-10-10 10:00] VITALS: BP 89/60; PULSE 64
[2020-10-10 10:15] VITALS: BP 94/59; PULSE 71
--- NOTE | 2020-10-10 10:15 | NUR ---
PATIENT DENIES NAUSEA OR PAIN. STILL A BIT SLEEPY.
--- NOTE | 2020-10-10 10:21 | NUR ---
AT BEDSIDE TO SPEAK WITH PATIENT ABOUT PROCEDURE
--- NOTE | 2020-10-10 10:30 | NUR ---
PATIENT REMOVES MONITORING DEVICES ON OWN AND UP TO BATHROOM.
[2020-10-10 10:46] VITALS: BP 124/82; PULSE 97; TEMP 97.4
--- NOTE | 2020-10-10 10:48 | NUR ---
PATIENT GIVEN HARD COPIES OF DISMISSAL INSTRUCTIONS TO READ AND LOOK OVER. VERBAL EXPLANATION GIVEN. PATIENT SIGNS AND GIVES VERBAL UNDERSTANDING. DENIES QUESTIONS.
--- NOTE | 2020-10-10 10:51 | NUR ---
PATIENT ESCORTED OFF UNIT TO WAITING SKIN CARE INSTRUCTOR VIA WHEELCHAIR BY ALEC BOTELLO.
[2021-03-17] MEDS ORDERED: TRELEGY ELLIPT1 EACH IH (18:37)
== END 2020-10-10 10:51 | disposition home or self-care (01) ==
LOC: SDCO 07:34
DX: K50.90 Crohn's disease, unspecified, without complications (principal); K62.5 Hemorrhage of anus and rectum; R19.5 Other fecal abnormalities; R41.3 Other amnesia; K21.9 Gastro-esophageal reflux disease without esophagitis; I10 Essential (primary) hypertension; G47.33 Obstructive sleep apnea (adult) (pediatric); G40.909 Epilepsy, unspecified, not intractable, without status epilepticus; J45.30 Mild persistent asthma, uncomplicated; N32.89 Other specified disorders of bladder; N30.90 Cystitis, unspecified without hematuria; G43.909 Migraine, unspecified, not intractable, without status migrainosus; I25.2 Old myocardial infarction; F64.0 Transsexualism; F41.1 Generalized anxiety disorder; F17.220 Nicotine dependence, chewing tobacco, uncomplicated; F43.10 Post-traumatic stress disorder, unspecified; Z86.73 Personal history of transient ischemic attack (TIA), and cerebral infarction without residual deficits; Z86.79 Personal history of other diseases of the circulatory system; Z79.82 Long term (current) use of aspirin; Z79.899 Other long term (current) drug therapy; Z88.0 Allergy status to penicillin; Z88.1 Allergy status to other antibiotic agents; Z88.2 Allergy status to sulfonamides; Z20.822 Contact with and (suspected) exposure to COVID-19
CPT/HCPCS: J1644; J2704

== ENCOUNTER 2020-10-23 04:51 | Emergency (ER) | payer MEDICARE, MEDICAID ==
[~2020-10-23] VITALS: Ht 175.3 cm; Wt 97.3 kg
[~2020-10-23 04:51] MED LIST changes: +ALDACTAZIDE 501 TAB PO; +ESTROGEN; +GLUCOPHAGE XR500 M1 PO; +ZESTRIL 20MG TA20 MG PO
[2020-10-23 04:57] VITALS: TEMP 98.5
[2020-10-23 05:17] LABS: COLLECTION METHOD IN
[2020-10-23 05:26] LABS: BUDDING YEAST Present /hpf; MUCOUS Present /lpf; PH 6 (5-8); SQUAMOUS EPITHELIAL 0-2 /hpf; URINE APPEARANCE Cloudy; URINE BACTERIA Moderate /hpf; URINE BILIRUBIN Negative (NEGATIVE); URINE BLOOD 1+ (NEGATIVE); URINE COLOR Yellow; URINE GLUCOSE Negative (NEGATIVE); URINE KETONE Trace (NEGATIVE); URINE LEUKOCYTE ESTERASE 3+ (NEGATIVE); URINE NITRATE Positive (NEGATIVE); URINE PROTEIN(semi-quant) 1+ (NEGATIVE); URINE UROBILINOGEN Negative (NEGATIVE); URINE WBC >50 /hpf
[2020-10-23] MEDS ORDERED: DIFLUCAN 100MG100 MG PO (05:51)
[2020-10-23] MEDS ORDERED: MACROBID 1100 MG/CAP PO (05:51)
[2020-10-23 06:10] VITALS: BP 124/80; PULSE 79
[2021-03-17] MEDS ORDERED: TRELEGY ELLIPT1 EACH IH (18:37)
== END 2020-10-23 06:10 | disposition home or self-care (01) ==
LOC: COL.ER 04:51
PROVIDERS: Emergency Medicine
DX: N50.811 Right testicular pain (principal); I25.2 Old myocardial infarction; G40.909 Epilepsy, unspecified, not intractable, without status epilepticus; F17.290 Nicotine dependence, other tobacco product, uncomplicated; Z86.73 Personal history of transient ischemic attack (TIA), and cerebral infarction without residual deficits; Z88.0 Allergy status to penicillin; Z88.1 Allergy status to other antibiotic agents; Z88.8 Allergy status to other drugs, medicaments and biological substances; Z79.82 Long term (current) use of aspirin; Z79.51 Long term (current) use of inhaled steroids; Z79.84 Long term (current) use of oral hypoglycemic drugs

== ENCOUNTER 2020-10-31 13:07 | Outpatient (CLI) | payer MEDICARE, MEDICAID ==
[~2020-10-31] VITALS: Ht 175.3 cm; Wt 98.0 kg
[~2020-10-31 13:07] MED LIST changes: +DIFLUCAN 100MG100 MG PO
[2020-10-31 13:27] VITALS: BP 147/89; PULSE 101; TEMP 98.5
[2020-11-19] MEDS ORDERED: DEPAKOTE ER 25250 MG PO (04:16)
[2020-11-19] MEDS ORDERED: DEPAKOTE ER 50500 MG PO (05:48)
[2020-11-19] MEDS ORDERED: ESTRACE2 MG PO (05:51)
[2020-11-19] MEDS ORDERED: ALDACTONE 100M100 MG PO (05:55)
[2020-11-19] MEDS ORDERED: BIOTIN800 MCG PO (05:55)
[2020-11-19] MEDS ORDERED: WELLBUTRIN XL150 MG PO (05:57)
[2020-11-22] MEDS ORDERED: MACROBID 1100 MG/CAP PO (09:27)
[2020-11-22] MEDS ORDERED: BACTRIM DS 8001 TAB PO (09:27)
[2020-11-22] MEDS ORDERED: NORCO 325 MG-51 TAB PO (09:45)
[2020-12-04] MEDS ORDERED: PREDNISONE20 MG PO (03:38)
[2021-03-17] MEDS ORDERED: TRELEGY ELLIPT1 EACH IH (18:37)
== END 2020-12-04 10:20 | disposition home or self-care (01) ==
LOC: EUO
DX: I87.8 Other specified disorders of veins (principal); N30.90 Cystitis, unspecified without hematuria; Z79.899 Other long term (current) drug therapy
CPT/HCPCS: J1644

== ENCOUNTER 2020-11-19 01:27 | Inpatient (IN) | payer MEDICARE, MEDICAID ==
[~2020-11-19] VITALS: Ht 175.3 cm; Wt 100.0 kg
[2020-11-19] VITALS (8 sets, daily range): BP systolic 91–130; BP diastolic 50–78; PULSE 71–103; TEMP 97.6–98.3
[2020-11-19 02:06] LABS: BASO # 0.1 (0.0-0.2); BASO % 0.8 % (0.0-2.0); EOS # 0.2 (0.0-0.7); EOS % 1.7 % (0-4.0); GRAN # 6.4 (1.4-6.5); GRAN % 70.2 % (42.2-75.2); HEMATOCRIT 40.8 % (42.0-52.0); HEMOGLOBIN 13.3 g/dl (13.5-18.0); LYMPH # 1.5 (1.2-3.4); LYMPH % 16.4 % (20.0-51.0); MEAN CELL VOLUME 82 fl (80.0-100.0); MEAN CORPUSCULAR HEMOGLOBIN 27 pg (27.0-31.0); MEAN CORPUSCULAR HGB CONC 33 g/dl (33.0-37.0); MEAN PLATELET VOLUME 9.2 fl (7.4-10.4); MONO # 0.9 (0.1-0.6); MONO % 10.3 % (1.7-9.3); PLATELET COUNT 226 K/mm3 (130-400); RED BLOOD COUNT 4.95 M/mm3 (4.20-5.60); REDCELL DISTRIBUTION WIDTH-CV 13.7 % (11.5-14.5)
[2020-11-19 02:12] LABS: COLLECTION METHOD CATHETER
[2020-11-19 02:20] LABS: ALANINE AMINOTRANSFERASE 18 U/L (4-49); ALBUMIN 4.2 gm/dL (3.5-5.0); ALKALINE PHOSPHATASE 55 U/L (50-136); ANION GAP 13 mmol/L (7-16); AST,SGOT 20 U/L (15-37); BILIRUBIN,TOTAL < 0.1 mg/dL (0.0-1.0); BLOOD UREA NITROGEN 17 mg/dL (9-20); C-REACTIVE PROTEIN 0.6 mg/dL (0.0-0.9); CALCIUM 8.8 mg/dL (8.4-10.2); CARBON DIOXIDE 20 mmol/L (22-30); CHLORIDE 104 mmol/L (98-107); CREATININE, serum 1.17 (0.66-1.25); GLUCOSE 118 mg/dL (74-106); POTASSIUM 4.2 mmol/L (3.4-5.0); SODIUM 137 mmol/L (137-145); TOTAL PROTEIN 7.8 gm/dL (6.4-8.2)
[2020-11-19 02:24] LABS: MUCOUS Present /lpf; PH 5 (5-8); SQUAMOUS EPITHELIAL 0-2 /hpf; URINE APPEARANCE Cloudy; URINE BACTERIA Rare /hpf; URINE BILIRUBIN Negative (NEGATIVE); URINE BLOOD Negative (NEGATIVE); URINE COLOR Yellow; URINE GLUCOSE Negative (NEGATIVE); URINE KETONE Trace (NEGATIVE); URINE LEUKOCYTE ESTERASE 2+ (NEGATIVE); URINE NITRATE Positive (NEGATIVE); URINE PROTEIN(semi-quant) 2+ (NEGATIVE); URINE UROBILINOGEN Negative (NEGATIVE)
[2020-11-19 02:33] LABS: TROPONIN-I < 0.012 ng/mL (0.000-0.035)
[2020-11-19] MEDS ORDERED: DEPAKOTE ER 25250 MG PO (04:16)
--- NOTE | 2020-11-19 05:09 | NUR ---
PATIENT ARRIVED TO FLOOR AT 0430, ABLE TO TRANSFER INTO BED WITH MINIMAL ASSISTANCE. PATIENT VERY AWARE OF HIS OWN HISTORY AND ILLNESS. CURRENTLY HAS C/O NAUSEA AND PAIN; ADVISED SPECTROGRAPHIC ANALYST HOSPITALIST STAFF - AWAITING ORDERS.
[2020-11-19] MEDS ORDERED: DEPAKOTE ER 50500 MG PO (05:48)
[2020-11-19] MEDS ORDERED: ESTRACE2 MG PO (05:51)
[2020-11-19] MEDS ORDERED: BIOTIN800 MCG PO (05:55)
[2020-11-19] MEDS ORDERED: ALDACTONE 100M100 MG PO (05:55)
[2020-11-19] MEDS ORDERED: WELLBUTRIN XL150 MG PO (05:57)
--- NOTE | 2020-11-19 06:29 | NUR ---
PATIENT TO FLOOR, PLESANT. HAS C/O PAIN AND NAUSEA, TREATED DIRECTED. PATIENT IS UNSTEADY ON FEET AND NEEDS STANDBY ASSIST OF 1-2. NO OTHER NEEDS AT THIS TIME.
--- NOTE | 2020-11-19 07:15 | NUR ---
Vancomycin Initial Dosing Pharmacy Note Ordering provider: Sudhakar De La Torre MD Indication/duration: Complicated UTI, 5 days LABS: SCr 1.17, CrCl~92, GFR 71 Recommendation: Will continue Vancomcyin 1.5 gm IV q12h. Pharmacy will continue to monitor and check a Vancomycin trough on 11/21/20. Loading dose: 2 grams Maintenance dose: 1.5 grams every 12 hours Trough goal: 10-15 ug/mL
--- NOTE | 2020-11-19 17:57 | NUR ---
Patient resting periodically throughout the day and has been pleasant. Pain managed with Q4 dilaudid. Suprapubic catheter replaced.
--- NOTE | 2020-11-19 19:43 | NUR ---
PATIENT RESTING, C/O NAUSEA RATING 8/10, ZOFRAN GIVEN. PATIENT ALSO HAS C/O PAIN IN LOW ABDOMEN RATE 5/10, NO PAIN MEDICATION REQUESTED AT THIS TIME. PATIENT IS COOPERATIVE AND PLESANT. NO NEEDS VOICED AT CURRENT TIME.
[2020-11-20] VITALS (10 sets, daily range): BP systolic 113–180; BP diastolic 63–95; PULSE 75–164; TEMP 98–98.6
--- NOTE | 2020-11-20 05:35 | NUR ---
Patient slept well most of night. still offers c/o pain and states he feels morphine may work better at pain control than dilaudid. Patient states he is unsure if he is emptying bladder fully. I advised we bladder scan when he feels he is retaining. Advised he should discuss this with his physician. No other c/o at this.
[2020-11-20 06:05] LABS: BASO # 0.1 (0.0-0.2); BASO % 1.1 % (0.0-2.0); EOS # 0.2 (0.0-0.7); EOS % 4.5 % (0-4.0); GRAN # 2.1 (1.4-6.5); GRAN % 47.1 % (42.2-75.2); LYMPH # 1.5 (1.2-3.4); MEAN CELL VOLUME 86 fl (80.0-100.0); MEAN CORPUSCULAR HGB CONC 32 g/dl (33.0-37.0); MEAN PLATELET VOLUME 9.7 fl (7.4-10.4); MONO # 0.5 (0.1-0.6); MONO % 11.8 % (1.7-9.3); PLATELET COUNT 178 K/mm3 (130-400); RED BLOOD COUNT 4.05 M/mm3 (4.20-5.60); REDCELL DISTRIBUTION WIDTH-CV 13.8 % (11.5-14.5)
[2020-11-20 06:17] LABS: HEMOGLOBIN 11.1 g/dl (13.5-18.0); MEAN CORPUSCULAR HEMOGLOBIN 27 pg (27.0-31.0)
[2020-11-20 06:20] LABS: CALCIUM 8.2 mg/dL (8.4-10.2); CREATININE, serum 0.98 (0.66-1.25); POTASSIUM 3.7 mmol/L (3.4-5.0)
--- NOTE | 2020-11-20 07:40 | NUR ---
Shift assessment complete. Pt lying in bed, NS and vanco infusing. Reports some nausea, zofran administered at this time. Heart RRR. Lungs CTA. A&Ox4. Suprapubic catheter insertion site w/o s/s complication, output clear yellow. Denies pain at this time. Continuing to monitor.
--- NOTE | 2020-11-20 11:26 | NUR ---
Initial visit; Patient thanked Steam And Gas Turbines Assembler for coming in to visit though declined spiritual care at this time.
--- NOTE | 2020-11-20 13:52 | NUR ---
Volunteer Specialist met with the patient to complete intake. The patient lives in [facility] with a roommate. Thet patient uses a walking stick occasionally and is independent with ADLs. The patient's PCP is Dr. Donald and receives medications from [facility] with no difficulties. The patient does not have advanced directives. The patient is not and has no children. The patient's parents, Nestor and Bee live in [place]. The patient plans to return home at discharge with a friend providing transportation. Discharge disposition: Return home
--- NOTE | 2020-11-20 15:00 | NUR ---
This RN notified by pt's visitor that pt was having a seizure. Went immediately to room to find pt lying in bed seizing. Time of entering room 1447. Pt's visitor states that seizure started at approximately 1442. Notified Iqra GARCÍA who ordered 1 mg IV ativan. Administered ativan at 1451 and this RN remained w/pt for duration of seizure. Convulsing stopped at 1455. Vitals at this time BP 158/72, RR 24, SpO2 97%, HR 122. Pt opening eyes and responding appropriately to questions approximately 3 minutes after end of seizure. Iqra GARCÍA at bedside at this time checking on pt. Will continue to monitor.
--- NOTE | 2020-11-20 17:10 | NUR ---
Walking down alaniz and saw pt convulsing in bed. Entered room to find pt having another seizure at 1658. Notified charge nurse Erica to bring Ativan. Ativan administered at 1701. This RN, Erica RN, and RT remained w/pt during seizure. Seizure ended at 1706. O2 sats remained above 96% for duration of seizure. VS following BP 160/95, RR 22, HR 130, SpO2 96%. Pt alert and answering questions at this time. Attempted to notify Iqra GARCÍA w/o answer. Will try again.
--- NOTE | 2020-11-20 17:46 | NUR ---
Multiple attempts to call Iqra GARCÍA w/o answer. Attempted to call w/o answer. Will f/u w/ again in 5 minutes.
--- NOTE | 2020-11-20 18:30 | NUR ---
Attempted to call x2 more times w/o answer. Esteban HUDDLESTON now executive director contract shop notified of seizure episodes. Ordered consult w/ who was notified at this time and reviewing pt's chart. Esteban called back stating we will continue to monitor pt for now awaiting further recs from .
--- NOTE | 2020-11-20 20:29 | NUR ---
PATIENT ALERT AND TALKITIVE. HAS C/O NAUSEA, ZOFRAN GIVEN. PAIN RATING 4/10 IN LOW PELVIS. PATIENT THINKS HE IS STILL RETAINING URINE AND WOULD LIKE TO BLADDER SCAN THIS EVENING TO CHECK FOR RESIDUAL, NO OTHER NEEDS AT THIS TIME.
--- NOTE | 2020-11-20 21:31 | NUR ---
At 2106, PCT called and stated that patient had used call light but did not say anything. When check on in room, patient shaking in bed have "seizure." Grabbed 1 mg Ativan and given at 2108. Patient continued to shake in bed. HR and BP elevated, but SPO2 stayed above 92%. Shaking stopped at 2119. As soon as shaking stopped, patient opened eyes and stated, "that's not the last of it." Called and updated TARIQ Landaverde. Voices no questions, needs, or concerns at this time. Seizure precautions remain in place.
--- NOTE | 2020-11-20 23:19 | NUR ---
PATIENT CALLED RN INTO ROOM, C/O LEG TREMORS, DENIES THAT HE IS COLD - STATES THIS IS UNCONTROLLABLE - IT IS NOTED THAT THE LEG MOVEMENT BECOMES MORE PRONOUNCED AND PATIENT BACK STARTS TO ARCH; NEITHER ARM IS AFFECTED AND HANDS ARE NOTED TO BE FIRMLY ON BED AT PATIENT SIDE. PATIENT IS ABLE TO ANSWER QUESTIONS DURING THIS EPISODE. LORAZEPAM 1MG GIVEN IV WITH ALMOST IMMEDIATE CESSATION OF ALL TREMORS. PATIENT STATES THIS WAS A SEIZURE AND REQUESTS TO BE SEDATED UNTIL HIS "MEDICATION LEVELS" ARE CORRECTED. PATIENT STATES HE CANNOT "DO THIS ALL NIGHT" AND STATES HE DOES NOT WANT TO BECOME SO UPSET WITH ANXIETY THAT HE WOULD BECOME "AGGRESSIVE AND TEAR THINGS UP", ADDING THIS HAS OCCURED IN THE PAST AT [facility] IN [place] WHERE "SECURITY HAD TO BECOME INVOLVED". GARDE MANGER PHYSICIAN CONTACTED, MELATONIN OFFERED WITH PATIENT DECLINING STATING IT DOESN'T WORK.
[2020-11-21] VITALS (8 sets, daily range): BP systolic 112–156; BP diastolic 65–90; PULSE 82–115; TEMP 97.6–98.4
--- NOTE | 2020-11-21 06:27 | NUR ---
PATIENT FELL ASLEEP APPOX 0100 AND SLEPT SOUNDLY UNTIL 0500 WHEN MEDICATIONS AND LAB DRAW DUE. NO FURTHER C/O TREMORS OR ANXIETY THIS MORNING. COOPERATIVE THEN QUICKLY BACK TO SLEEP
[2020-11-21 06:41] LABS: HEMATOCRIT 36.6 % (42.0-52.0); HEMOGLOBIN 11.7 g/dl (13.5-18.0); MEAN CELL VOLUME 86 fl (80.0-100.0); MEAN CORPUSCULAR HEMOGLOBIN 27 pg (27.0-31.0); MEAN CORPUSCULAR HGB CONC 32 g/dl (33.0-37.0); MEAN PLATELET VOLUME 9.5 fl (7.4-10.4); PLATELET COUNT 211 K/mm3 (130-400); RED BLOOD COUNT 4.27 M/mm3 (4.20-5.60)
[2020-11-21 06:51] LABS: CALCIUM 8.5 mg/dL (8.4-10.2); CREATININE, serum 1.2 (0.66-1.25); POTASSIUM 3.6 mmol/L (3.4-5.0)
[2020-11-21 06:56] LABS: VALPROIC ACID (DEPAKENE) 11.2 ug/mL (50.0-100.0)
--- NOTE | 2020-11-21 09:02 | NUR ---
PATIENT SHIFT ASSESSMENT COMPLETED AT THIS TIME BY THIS NURSE AND SN DORITA. THIS NURSE AGREES WITH AND HAS REVIEWED STUDENT NURSES ASSESSMENT.
--- NOTE | 2020-11-21 14:26 | NUR ---
Primary nurse was assisted with [phone] patient care by [employer] [employer] student Catarina Feliciano and [employer] [facility] instructor Kathleen Shedlon MSN, RN
--- NOTE | 2020-11-21 15:18 | NUR ---
EMT DISPATCHER CALLED NURSE INTO ROOM FOR ASSISTANCE. EMT DISPATCHER REPORTS THAT SHE HAD GOTTEN THE PATIENT UP OUT OF BED TO CHANGE THE LINENS. PATIENT TOLD EMT DISPATCHER THAT THEY NEEDED ASSISTANCE TO THE FLOOR. THE PATIENTS LEGS BEGAN TO SHAKE AND THEY WERE ASSISTED TO THE GROUND. UPON ENTRY TO THE ROOM THE PATIENT WAS LAYING ON THEIR SIDE WITH EMT DISPATCHER PRESENT. STUDENT NURSE TIMING SEIZURE ACTIVITY. THIS NURSE ADMINISTERED IV ATIVAN PER ORDERS. RAQUEL CUNHA AND CHARGE NURSE AYAN SIMMONS NOTIFIED. SHAKING SUBSIDED WITHIN ONE MINUTE OF IV ATIVAN BEING ADMINISTERED. TOTAL SEIZURE TIME WAS 4 MINUTES. PATIENT ASSISTED BACK INTO BED BY NURSING STAFF. VITALS OBTAINED. SEIZURE PADS IN PLACE. CALL LIGHT WITHIN REACH. WILL CONTINUE TO MONITOR.
--- NOTE | 2020-11-21 19:00 | NUR ---
REPORT GIVEN TO NIGHT NURSE. PATIENT MEDICATED FOR PAIN, NAUSEA, ANXIETY AND SEIZURE LIKE ACTIVITY THROUGHOUT THE SHIFT. PATIENT CURRENTLY SITTING IN ROOM ON TELEPHONE. IV VANC INFUSING. CALL LIGHT WITHIN REACH. PATIENT NOW REPORTING NAUSEA. NIGHT NURSE NOTIFIED.
--- NOTE | 2020-11-21 22:30 | NUR ---
2000- ALERT AND OX4. DENIES CHEST PAIN OR DIZZY, C/O SOA AND NAUSEA. ASKING FOR TIMES ON LAST DOSE OF PRN MEDS. ALSO STATES FEELS VERY ANIXOUS THIS EVENING AND DOESNT KNOW WHY. PM MEDS GIVEN ALONG W PRN PHENERGAN AND ATIVAN. NO SEIZURE ACTIVITY SINCE 3PM THIS AFTERNOON. FAIR APPEITE. PASSING GAS NO BM SINCE WEDNESDAY WHICH STATES IS NORMAL TO GO A FEW DAYS WITHOUT ONE. IV ANTIBOITCS RUNNING. IV FLUSHED. NEEDS MET.
--- NOTE | 2020-11-22 00:42 | NUR ---
IV SITE INFILRATED DURING DILAUDID AND IV ANTIBOTIC PUSH. 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 WILBER NOTIFED NEED TO RESTART IV DUE TO THIS. PT UPSET WANTING PORT A CATH ACCESSED. RISK FOR INFECTION, NO ACCESSED AT THIS TIME. PHERIPHERAL SITE PEFERED BY WILBER GARCÍA, WILL REPEAT MEDS THAT WERE LAST GIVEN PER IV.
--- NOTE | 2020-11-22 04:52 | NUR ---
IV RESTARTED TO RT HAND LAST NIGHT. NO "SEIZURE" ACTIVITY NOTED. PT VERY UNHAPPY ABOUT NOT ACCESSING PORT A CATH. REQUEST FOOD IN MIDDLE OF NIGHT TO EAT AND PROVIDED. RESTING QUIETLY AT THIS TIME.NEEDS MET.
[2020-11-22 06:54] LABS: BASO # 0.1 (0.0-0.2); BASO % 1.5 % (0.0-2.0); EOS # 0.3 (0.0-0.7); EOS % 6.1 % (0-4.0); GRAN # 2.6 (1.4-6.5); GRAN % 47.6 % (42.2-75.2); HEMOGLOBIN 11.6 g/dl (13.5-18.0); LYMPH # 1.7 (1.2-3.4); LYMPH % 31.4 % (20.0-51.0); MEAN CELL VOLUME 87 fl (80.0-100.0); MEAN CORPUSCULAR HEMOGLOBIN 27 pg (27.0-31.0); MEAN CORPUSCULAR HGB CONC 32 g/dl (33.0-37.0); MEAN PLATELET VOLUME 9.3 fl (7.4-10.4); MONO # 0.7 (0.1-0.6); PLATELET COUNT 229 K/mm3 (130-400); RED BLOOD COUNT 4.25 M/mm3 (4.20-5.60); REDCELL DISTRIBUTION WIDTH-CV 13.9 % (11.5-14.5)
[2020-11-22 07:04] LABS: CALCIUM 8.5 mg/dL (8.4-10.2); CREATININE, serum 1.13 (0.66-1.25); POTASSIUM 3.6 mmol/L (3.4-5.0)
[2020-11-22 07:06] LABS: HEMATOCRIT 36.8 % (42.0-52.0)
--- NOTE | 2020-11-22 07:08 | NUR ---
Patient sleeping in bed at this time. Patient denies any pain or discomfort at this time. Patient denies any further needs. Seizure percautions in place. Fall percautions in place. Call light within reach. Will continue to monitor.
[2020-11-22 07:39] VITALS: BP 144/89; PULSE 90; TEMP 97.5
[2020-11-22] MEDS ORDERED: BACTRIM DS 8001 TAB PO (09:27)
[2020-11-22] MEDS ORDERED: MACROBID 1100 MG/CAP PO (09:27)
--- NOTE | 2020-11-22 09:44 | NUR ---
Dyer And Washer attended clinical rounds with the team. The patient is to tentatively discharge home today, 11/22. There are no additional needs.
[2020-11-22] MEDS ORDERED: NORCO 325 MG-51 TAB PO (09:45)
--- NOTE | 2020-11-22 10:17 | NUR ---
Patient was visited by hospitalist and they reviewed medications. The DR asked about home medication and initially wanted to stop the lisinopril. The patient requested to stay on all his home medication The patient also complained the staff is not using their port a cath. The patient also requests to leave today. The patient was not pleased with the antibiotic chosen by the doctor, but understands the need. The patient requested benadryl and the primary nurse provided this. Call light and pepsi are within reach per patient request. No other requests or needs at this time.
--- NOTE | 2020-11-22 11:14 | NUR ---
Patient deemed fit for discharge by Dr. De La Torre. Patient anxious to get home. IV DC'd. Catheter intact no signs of phlebitis noted. Patient education given. Patient denies any pain, discomfort, or needs at this time. Patient had no further questions. Patient escorted from the building by [facility] Staff.
--- NOTE | 2020-11-22 13:37 | NUR ---
Primary nurse was assisted with [phone] patient care by [employer] student Leigh Ann Morales and [employer] instructor Kathleen Sheldon MSN, RN.
[2021-03-17] MEDS ORDERED: TRELEGY ELLIPT1 EACH IH (18:37)
== END 2020-11-22 11:11 | disposition home or self-care (01) | DRG 699 ==
LOC: COL.ER 01:27 → MEDICAL 03:12
PROVIDERS: Emergency Medicine; Physician Assistant; ADMIT Hospitalist
DX: T83.518A Infection and inflammatory reaction due to other urinary catheter, initial encounter (principal); N39.0 Urinary tract infection, site not specified; K50.90 Crohn's disease, unspecified, without complications; E87.2 Acidosis; G40.89 Other seizures; Y84.6 Urinary catheterization as the cause of abnormal reaction of the patient, or of later complication, without mention of misadventure at the time of the procedure; I25.10 Atherosclerotic heart disease of native coronary artery without angina pectoris; J45.909 Unspecified asthma, uncomplicated; G47.30 Sleep apnea, unspecified; N31.9 Neuromuscular dysfunction of bladder, unspecified; F43.10 Post-traumatic stress disorder, unspecified; F32.9 Major depressive disorder, single episode, unspecified; F41.9 Anxiety disorder, unspecified; F91.9 Conduct disorder, unspecified; K21.9 Gastro-esophageal reflux disease without esophagitis; Z86.73 Personal history of transient ischemic attack (TIA), and cerebral infarction without residual deficits; B95.2 Enterococcus as the cause of diseases classified elsewhere; B96.89 Other specified bacterial agents as the cause of diseases classified elsewhere; I95.9 Hypotension, unspecified; I25.2 Old myocardial infarction; Z79.84 Long term (current) use of oral hypoglycemic drugs; Z79.82 Long term (current) use of aspirin; Z79.51 Long term (current) use of inhaled steroids
CPT/HCPCS: 99222-AI; 99231-AI; 99232-AI; 99239; J1170; J1200; J1335; J1644; J2060; J2405; J2550; J3370; J7030; J7050

== ENCOUNTER 2020-12-03 14:37 | Outpatient (CLI) | payer MEDICARE, MEDICAID ==
[~2020-12-03 14:37] MED LIST changes: +ALDACTONE 100M100 MG PO; +BIOTIN800 MCG PO; +DEPAKOTE ER 50500 MG PO; +ESTRACE2 MG PO; +WELLBUTRIN XL150 MG PO
[2020-12-03 15:19] VITALS: BP 140/80; PULSE 82; TEMP 98
[2020-12-04] MEDS ORDERED: PREDNISONE20 MG PO (03:38)
[2021-03-17] MEDS ORDERED: TRELEGY ELLIPT1 EACH IH (18:37)
== END 2020-12-03 15:32 | disposition home or self-care (01) ==
LOC: EUO 14:37
DX: I87.8 Other specified disorders of veins (principal); N30.90 Cystitis, unspecified without hematuria
CPT/HCPCS: J1644

== ENCOUNTER 2020-12-04 01:39 | Emergency (ER) | payer MEDICARE, MEDICAID ==
[~2020-12-04] VITALS: Ht 149.9 cm; Wt 93.6 kg
[2020-12-04 01:43] VITALS: TEMP 97.7
[2020-12-04 01:52] LABS: BASO # 0.1 (0.0-0.2); BASO % 1.3 % (0.0-2.0); EOS # 0.2 (0.0-0.7); EOS % 2.5 % (0-4.0); GRAN # 4.4 (1.4-6.5); GRAN % 57.1 % (42.2-75.2); HEMATOCRIT 39.9 % (42.0-52.0); HEMOGLOBIN 12.7 g/dl (13.5-18.0); LYMPH # 2.1 (1.2-3.4); LYMPH % 27.3 % (20.0-51.0); MEAN CELL VOLUME 87 fl (80.0-100.0); MEAN CORPUSCULAR HEMOGLOBIN 28 pg (27.0-31.0); MEAN CORPUSCULAR HGB CONC 32 g/dl (33.0-37.0); MEAN PLATELET VOLUME 9.5 fl (7.4-10.4); MONO # 0.9 (0.1-0.6); PLATELET COUNT 277 K/mm3 (130-400); RED BLOOD COUNT 4.61 M/mm3 (4.20-5.60)
[2020-12-04 02:55] LABS: ALANINE AMINOTRANSFERASE 29 U/L (4-49); ALBUMIN 4.4 gm/dL (3.5-5.0); ALKALINE PHOSPHATASE 56 U/L (50-136); ANION GAP 12 mmol/L (7-16); AST,SGOT 23 U/L (15-37); BILIRUBIN,TOTAL < 0.1 mg/dL (0.0-1.0); BLOOD UREA NITROGEN 15 mg/dL (9-20); CALCIUM 9.1 mg/dL (8.4-10.2); CARBON DIOXIDE 21 mmol/L (22-30); CHLORIDE 106 mmol/L (98-107); GLUCOSE 108 mg/dL (74-106); POTASSIUM 4.1 mmol/L (3.4-5.0); SODIUM 139 mmol/L (137-145); TOTAL PROTEIN 7.9 gm/dL (6.4-8.2)
[2020-12-04 03:07] LABS: TROPONIN-I < 0.012 ng/mL (0.000-0.035)
[2020-12-04] MEDS ORDERED: PREDNISONE20 MG PO (03:38)
[2020-12-04 03:56] VITALS: BP 128/89; PULSE 105
[2021-03-17] MEDS ORDERED: TRELEGY ELLIPT1 EACH IH (18:37)
== END 2020-12-04 03:45 | disposition home or self-care (01) ==
LOC: COL.ER 01:39
PROVIDERS: Emergency Medicine
DX: R06.2 Wheezing (principal); R07.89 Other chest pain; I10 Essential (primary) hypertension; I25.10 Atherosclerotic heart disease of native coronary artery without angina pectoris; F43.10 Post-traumatic stress disorder, unspecified; F41.9 Anxiety disorder, unspecified; F32.9 Major depressive disorder, single episode, unspecified; G40.909 Epilepsy, unspecified, not intractable, without status epilepticus; I25.2 Old myocardial infarction; Z86.73 Personal history of transient ischemic attack (TIA), and cerebral infarction without residual deficits; Z98.890 Other specified postprocedural states; Z88.0 Allergy status to penicillin; Z88.1 Allergy status to other antibiotic agents; Z88.6 Allergy status to analgesic agent; Z88.5 Allergy status to narcotic agent; Z88.8 Allergy status to other drugs, medicaments and biological substances; Z99.81 Dependence on supplemental oxygen; Z79.82 Long term (current) use of aspirin; Z79.51 Long term (current) use of inhaled steroids; Z79.899 Other long term (current) drug therapy
CPT/HCPCS: J1885; J2270; J2930

== ENCOUNTER 2020-12-07 17:36 | Outpatient (RCR) | payer MEDICARE, MEDICAID ==
[2020-12-04 10:59] VITALS: BP 91/53; PULSE 94; TEMP 97.4
[2020-12-04 17:50] VITALS: BP 111/71; PULSE 81; TEMP 98.3
--- NOTE | 2020-12-04 18:23 | NUR ---
Called for this nurse and then had a seizure that lasted 3 minutes and a second seizure that lasted 2 minutes. Denies biting tongue or incontinence of b/b. Alert and oriented post seizure.
--- NOTE | 2020-12-04 18:28 | NUR ---
Seizure lasting two minutes, no biting of tongue or incontience of B/B. Oriented post seizure and VSS
[2020-12-05 18:08] VITALS: BP 125/80; PULSE 68; TEMP 98.4
[2020-12-06 07:18] VITALS: BP 119/69; PULSE 86; TEMP 98.5
[2020-12-06 18:33] VITALS: BP 111/62; PULSE 78; TEMP 98.4
[~2020-12-07] VITALS: Ht 175.3 cm; Wt 99.3 kg
[2020-12-07 08:59] VITALS: BP 122/72; PULSE 68; TEMP 97.7
[~2020-12-07 17:36] MED LIST changes: +PREDNISONE20 MG PO
[2020-12-08 06:57] VITALS: BP 108/70; PULSE 81; TEMP 97.4
[2020-12-09 09:08] VITALS: BP 121/82; PULSE 72; TEMP 98
[2020-12-09 18:49] VITALS: BP 127/79; PULSE 75; TEMP 98.3
--- NOTE | 2020-12-09 19:59 | NUR ---
PT HAS BEEN TRANSFERRED TO ER FOR SEIZURE-LIKE ACTIVITY THAT STARTED APPROX 1940. PT DEMONSTRATED EXTENSION AND STIFFNESS OF NECK AND ARMS, AND TREMBLING OF LEGS. PT, WHILE MOSTLY UNRESPONSIVE, WAS ABLE TO RESPOND TO VERBAL AT TIMES, AND DID NOD UP AND DOWN WHEN ASKED IF HE FELT HE NEEDED TO GO TO THE ER. PT SATS REMAINED >90, HR UP TO 150'S ON PULSE OX, BP 181/99. DIAPHORETIC. PT HAD REPORTED ON HIS ARRIVAL FOR THIS EVENING'S DOSE OF VANCOMYCIN, THAT HE FELT THAT SEIZURES WERE IMMINENT. PT RECEIVED 176 OF 250 CC (1.5GM) VANC.
[2020-12-09] MEDS ORDERED: DIAST10 RC (21:49)
[2020-12-10 07:00] VITALS: BP 121/68; PULSE 68; TEMP 99.9
[2020-12-11] MEDS ORDERED: VANCO 1.751.75 GM/50 IV (07:16)
[2020-12-11 07:17] VITALS: BP 125/78; PULSE 71; TEMP 98.3
[2020-12-11] MEDS ORDERED: INVANZ INJ1 G/VIAL IV (07:17)
[2020-12-11 19:08] VITALS: BP 121/76; PULSE 72; TEMP 98.2
[2020-12-12 07:30] VITALS: BP 117/99; PULSE 67; TEMP 97.9
[2020-12-12 10:25] VITALS: BP 110/72; PULSE 66
[2020-12-12 17:41] VITALS: BP 133/80; PULSE 72; TEMP 98.5
[2020-12-13 08:03] VITALS: BP 96/43; PULSE 76; TEMP 97.8
[2020-12-13 17:47] VITALS: BP 141/84; PULSE 72; TEMP 97.4
[2020-12-14 09:54] VITALS: BP 118/71; PULSE 62; TEMP 97.6
[2020-12-15 09:23] VITALS: BP 116/81; PULSE 66; TEMP 97.9
[2020-12-16 08:34] VITALS: BP 142/74; PULSE 80; TEMP 97.9
[2020-12-16 18:05] VITALS: BP 128/76; PULSE 81; TEMP 98.7
--- NOTE | 2020-12-16 20:41 | NUR ---
PORT ACCESS TO MEDIAL LUMEN WAS DC'D AFTER FLUSHING WITH HEPARIN IN NORMAL MANNER. I ACCESSED LATERAL LUMEN, GOOD BLOOD RETURN AND FLUSHED WITH HEPARIN PER PROTOCOL. I LEFT THIS LUMEN ACCESSED PER PT'S REQUEST SHE IS SCHEDULED TO SEE INFECTION DISEASE MD TOMORROW, AND WILL KNOW FOR SURE IF IV ANTIBIOTICS ARE DONE. PT WILL LET US KNOW FOR SURE WHEN SHE KNOWS, PROBABLY TOMORROW. ALSO, PT HAS A CLINICAL APPT FOR PORT FLUSH SCHEDULED 12/31. I WILL EDIT THAT APPT TIME TO REFLECT THAT BOTH LUMENS WERE HEPARANIZED TODAY, SO NEW APPT TIME WILL BE 30 DAYS FROM TODAY.
[2020-12-21] MEDS ORDERED: MACROBID 1100 MG/CAP PO (04:16)
[2020-12-21] MEDS ORDERED: DIFLUCAN 100MG100 MG PO (04:16)
[2021-03-17] MEDS ORDERED: TRELEGY ELLIPT1 EACH IH (18:37)
== END 2020-12-21 11:17 | disposition home or self-care (01) ==
LOC: EUO 17:36
DX: N31.9 Neuromuscular dysfunction of bladder, unspecified (principal); N39.0 Urinary tract infection, site not specified; R41.82 Altered mental status, unspecified; R89.2 Abnormal level of other drugs, medicaments and biological substances in specimens from other organs, systems and tissues; R56.9 Unspecified convulsions; I25.2 Old myocardial infarction; Z86.73 Personal history of transient ischemic attack (TIA), and cerebral infarction without residual deficits; Z88.0 Allergy status to penicillin; Z88.1 Allergy status to other antibiotic agents; Z88.8 Allergy status to other drugs, medicaments and biological substances; Z79.82 Long term (current) use of aspirin; Z79.84 Long term (current) use of oral hypoglycemic drugs; Z96.0 Presence of urogenital implants; Z79.899 Other long term (current) drug therapy
CPT/HCPCS: J1335; J1644; J3370; J7040; J7050

== ENCOUNTER 2020-12-21 02:45 | Emergency (ER) | payer MEDICARE, MEDICAID ==
[~2020-12-21] VITALS: Ht 175.3 cm; Wt 93.6 kg
[~2020-12-21 02:45] MED LIST changes: +DIAST10 RC; +VANCO 1.751.75 GM/50 IV
[2020-12-21 03:01] LABS: BASO # 0.1 (0.0-0.2); BASO % 1.6 % (0.0-2.0); EOS # 0.3 (0.0-0.7); EOS % 3.7 % (0-4.0); GRAN # 3.9 (1.4-6.5); GRAN % 47.3 % (42.2-75.2); HEMOGLOBIN 13.3 g/dl (13.5-18.0); LYMPH # 2.9 (1.2-3.4); LYMPH % 34.8 % (20.0-51.0); MEAN CELL VOLUME 87 fl (80.0-100.0); MEAN CORPUSCULAR HEMOGLOBIN 28 pg (27.0-31.0); MEAN CORPUSCULAR HGB CONC 32 g/dl (33.0-37.0); MEAN PLATELET VOLUME 8.9 fl (7.4-10.4); MONO % 11.9 % (1.7-9.3); PLATELET COUNT 282 K/mm3 (130-400); RED BLOOD COUNT 4.83 M/mm3 (4.20-5.60); REDCELL DISTRIBUTION WIDTH-CV 15.1 % (11.5-14.5)
[2020-12-21 03:02] LABS: COLLECTION METHOD CATHETER
[2020-12-21 03:11] LABS: ALBUMIN 4.7 gm/dL (3.5-5.0); BILIRUBIN,TOTAL 0.3 mg/dL (0.0-1.0); CALCIUM 9.7 mg/dL (8.4-10.2); CREATININE, serum 1.19 (0.66-1.25); POTASSIUM 4.7 mmol/L (3.4-5.0); TOTAL PROTEIN 8.5 gm/dL (6.4-8.2)
[2020-12-21 03:17] LABS: BUDDING YEAST Present /hpf; PH 6 (5-8); SQUAMOUS EPITHELIAL None Seen /hpf; URINE APPEARANCE Hazy; URINE BACTERIA None Seen /hpf; URINE BILIRUBIN Negative (NEGATIVE); URINE BLOOD Negative (NEGATIVE); URINE COLOR Yellow; URINE GLUCOSE Negative (NEGATIVE); URINE KETONE Negative (NEGATIVE); URINE LEUKOCYTE ESTERASE 2+ (NEGATIVE); URINE NITRATE Negative (NEGATIVE); URINE PROTEIN(semi-quant) Negative (NEGATIVE); URINE UROBILINOGEN Negative (NEGATIVE)
[2020-12-21] MEDS ORDERED: MACROBID 1100 MG/CAP PO (04:16)
[2020-12-21] MEDS ORDERED: DIFLUCAN 100MG100 MG PO (04:16)
[2020-12-21 04:28] VITALS: BP 132/82; PULSE 87; TEMP 98.4
[2021-03-17] MEDS ORDERED: TRELEGY ELLIPT1 EACH IH (18:37)
== END 2020-12-21 04:28 | disposition home or self-care (01) ==
LOC: COL.ER 02:45
PROVIDERS: Emergency Medicine
DX: G40.909 Epilepsy, unspecified, not intractable, without status epilepticus (principal); B37.9 Candidiasis, unspecified; I10 Essential (primary) hypertension; I25.2 Old myocardial infarction; I25.10 Atherosclerotic heart disease of native coronary artery without angina pectoris; F41.9 Anxiety disorder, unspecified; F32.9 Major depressive disorder, single episode, unspecified; F43.10 Post-traumatic stress disorder, unspecified; Z86.73 Personal history of transient ischemic attack (TIA), and cerebral infarction without residual deficits; Z90.49 Acquired absence of other specified parts of digestive tract; Z88.0 Allergy status to penicillin; Z88.1 Allergy status to other antibiotic agents; Z88.8 Allergy status to other drugs, medicaments and biological substances; Z79.82 Long term (current) use of aspirin; Z79.84 Long term (current) use of oral hypoglycemic drugs; Z79.899 Other long term (current) drug therapy
CPT/HCPCS: J2060

== ENCOUNTER 2020-12-28 11:27 | Emergency (ER) | payer MEDICARE, MEDICAID ==
[~2020-12-28] VITALS: Ht 175.3 cm; Wt 98.6 kg
[2020-12-28 11:35] VITALS: TEMP 100.6
[2020-12-28] MEDS ORDERED: LUNESTA3 MG PO (12:08)
[2020-12-28 12:33] LABS: BASO # 0.1 (0.0-0.2); EOS # 0.1 (0.0-0.7); EOS % 1.5 % (0-4.0); GRAN # 5.8 (1.4-6.5); GRAN % 73.3 % (42.2-75.2); HEMOGLOBIN 12.2 g/dl (13.5-18.0); LYMPH # 0.8 (1.2-3.4); LYMPH % 10.1 % (20.0-51.0); MEAN CELL VOLUME 86 fl (80.0-100.0); MEAN CORPUSCULAR HEMOGLOBIN 28 pg (27.0-31.0); MEAN CORPUSCULAR HGB CONC 33 g/dl (33.0-37.0); PLATELET COUNT 244 K/mm3 (130-400); RED BLOOD COUNT 4.31 M/mm3 (4.20-5.60)
[2020-12-28 12:34] LABS: HEMATOCRIT 36.9 % (42.0-52.0)
[2020-12-28 12:42] LABS: ALANINE AMINOTRANSFERASE 54 U/L (4-49); ALBUMIN 4.1 gm/dL (3.5-5.0); ALKALINE PHOSPHATASE 66 U/L (50-136); ANION GAP 9 mmol/L (7-16); AST,SGOT 40 U/L (15-37); BILIRUBIN,TOTAL 0.2 mg/dL (0.0-1.0); BLOOD UREA NITROGEN 16 mg/dL (9-20); C-REACTIVE PROTEIN 0.8 mg/dL (0.0-0.9); CALCIUM 8.6 mg/dL (8.4-10.2); CARBON DIOXIDE 23 mmol/L (22-30); CHLORIDE 101 mmol/L (98-107); CREATININE, serum 1.17 (0.66-1.25); GLUCOSE 106 mg/dL (74-106); LIPASE 61 U/L (23-300); MAGNESIUM 1.7 mg/dL (1.6-2.3); POTASSIUM 4.3 mmol/L (3.4-5.0); SODIUM 134 mmol/L (137-145); TOTAL PROTEIN 7.5 gm/dL (6.4-8.2)
[2020-12-28 12:52] LABS: TROPONIN-I < 0.012 ng/mL (0.000-0.035)
[2020-12-28 13:11] LABS: COLLECTION METHOD IN
[2020-12-28 13:24] LABS: MUCOUS Present /lpf; PH 6 (5-8); SQUAMOUS EPITHELIAL None Seen /hpf; URINE APPEARANCE Cloudy; URINE BACTERIA Moderate /hpf; URINE BILIRUBIN Negative (NEGATIVE); URINE BLOOD Negative (NEGATIVE); URINE COLOR Yellow; URINE GLUCOSE Negative (NEGATIVE); URINE KETONE Negative (NEGATIVE); URINE LEUKOCYTE ESTERASE 3+ (NEGATIVE); URINE NITRATE Negative (NEGATIVE); URINE PROTEIN(semi-quant) 1+ (NEGATIVE); URINE UROBILINOGEN Negative (NEGATIVE)
[2020-12-28 13:34] LABS: INR 1.1 (0.8-3.0); PROTHROMBIN TIME 12.3 SECONDS (9.7-12.8)
[2020-12-28 13:39] LABS: D-DIMER < 200.00 ng/mLDDu (200-230)
[2020-12-28 14:20] VITALS: BP 94/62; PULSE 85
[2021-03-17] MEDS ORDERED: TRELEGY ELLIPT1 EACH IH (18:37)
== END 2020-12-28 14:21 | disposition home or self-care (01) ==
LOC: COL.ER 11:27
PROVIDERS: Emergency Medicine
DX: R07.89 Other chest pain (principal); T50.B95A Adverse effect of other viral vaccines, initial encounter; R50.9 Fever, unspecified; E86.0 Dehydration; I95.9 Hypotension, unspecified; F17.210 Nicotine dependence, cigarettes, uncomplicated; I25.2 Old myocardial infarction; R56.9 Unspecified convulsions; Z98.61 Coronary angioplasty status; Z86.73 Personal history of transient ischemic attack (TIA), and cerebral infarction without residual deficits; Z88.0 Allergy status to penicillin; Z88.1 Allergy status to other antibiotic agents; Z88.8 Allergy status to other drugs, medicaments and biological substances; Z79.82 Long term (current) use of aspirin; Z79.84 Long term (current) use of oral hypoglycemic drugs
CPT/HCPCS: J1885; J2405; J7030

== ENCOUNTER 2021-01-16 14:54 | Outpatient (CLI) | payer MEDICARE, MEDICAID ==
[~2021-01-16 14:54] MED LIST changes: +LUNESTA3 MG PO
[2021-01-16 15:37] VITALS: BP 137/92; PULSE 102; TEMP 98.5
[2021-03-17] MEDS ORDERED: TRELEGY ELLIPT1 EACH IH (18:37)
== END 2021-01-16 15:44 | disposition home or self-care (01) ==
LOC: EUO 14:54
DX: Z45.2 Encounter for adjustment and management of vascular access device (principal)
CPT/HCPCS: J1644

== ENCOUNTER 2021-01-16 18:15 | Emergency (ER) | payer MEDICARE, MEDICAID ==
[~2021-01-16] VITALS: Ht 175.3 cm; Wt 100.0 kg
[2021-01-16 18:18] VITALS: TEMP 98
[2021-01-16 18:58] LABS: BASO # 0.1 (0.0-0.2); BASO % 1.1 % (0.0-2.0); EOS # 0.1 (0.0-0.7); GRAN # 3.4 (1.4-6.5); GRAN % 64.6 % (42.2-75.2); HEMATOCRIT 34.3 % (42.0-52.0); HEMOGLOBIN 11.4 g/dl (13.5-18.0); LYMPH # 1.1 (1.2-3.4); LYMPH % 20.9 % (20.0-51.0); MEAN CELL VOLUME 85 fl (80.0-100.0); MEAN CORPUSCULAR HEMOGLOBIN 28 pg (27.0-31.0); MEAN CORPUSCULAR HGB CONC 33 g/dl (33.0-37.0); MEAN PLATELET VOLUME 8.6 fl (7.4-10.4); MONO # 0.6 (0.1-0.6); MONO % 11.6 % (1.7-9.3); PLATELET COUNT 274 K/mm3 (130-400); RED BLOOD COUNT 4.05 M/mm3 (4.20-5.60); REDCELL DISTRIBUTION WIDTH-CV 14.3 % (11.5-14.5)
[2021-01-16 19:07] LABS: ALANINE AMINOTRANSFERASE 37 U/L (4-49); ALKALINE PHOSPHATASE 53 U/L (50-136); ANION GAP 4 mmol/L (7-16); AST,SGOT 32 U/L (15-37); BILIRUBIN,TOTAL 0.2 mg/dL (0.0-1.0); BLOOD UREA NITROGEN 14 mg/dL (9-20); CALCIUM 8.8 mg/dL (8.4-10.2); CARBON DIOXIDE 23 mmol/L (22-30); CHLORIDE 107 mmol/L (98-107); CREATININE, serum 1.01 (0.66-1.25); GLUCOSE 89 mg/dL (74-106); POTASSIUM 3.6 mmol/L (3.4-5.0); SODIUM 134 mmol/L (137-145); TOTAL PROTEIN 7.2 gm/dL (6.4-8.2)
[2021-01-16 19:28] LABS: TROPONIN-I < 0.012 ng/mL (0.000-0.035)
[2021-01-16 20:00] LABS: C-REACTIVE PROTEIN < 0.5 mg/dL (0.0-0.9)
[2021-01-16 21:20] VITALS: BP 145/93; PULSE 92
[2021-03-17] MEDS ORDERED: TRELEGY ELLIPT1 EACH IH (18:37)
== END 2021-01-16 21:20 | disposition home or self-care (01) ==
LOC: COL.ER 18:15
PROVIDERS: Nurse Practitioner Primary Care
DX: R51.9 Headache, unspecified (principal); R07.89 Other chest pain; I11.0 Hypertensive heart disease with heart failure; I50.9 Heart failure, unspecified; R56.9 Unspecified convulsions; I25.2 Old myocardial infarction; F32.9 Major depressive disorder, single episode, unspecified; F43.10 Post-traumatic stress disorder, unspecified; K21.9 Gastro-esophageal reflux disease without esophagitis; Z86.73 Personal history of transient ischemic attack (TIA), and cerebral infarction without residual deficits; Z79.899 Other long term (current) drug therapy
CPT/HCPCS: J1200; J1885; J2405; J7030

== ENCOUNTER 2021-01-20 18:42 | Emergency (ER) | payer SELFPAY ==
[~2021-01-20] VITALS: Ht 175.3 cm; Wt 94.5 kg
[2021-01-20 20:25] LABS: COLLECTION METHOD IN
[2021-01-20 20:38] LABS: AMORPHOUS CRYSTAL Present /uL; MUCOUS Present /lpf; PH 5 (5-8); URINE APPEARANCE Cloudy; URINE BACTERIA None Seen /hpf; URINE BILIRUBIN Negative (NEGATIVE); URINE BLOOD Negative (NEGATIVE); URINE COLOR Yellow; URINE GLUCOSE Negative (NEGATIVE); URINE KETONE Trace (NEGATIVE); URINE LEUKOCYTE ESTERASE 2+ (NEGATIVE); URINE NITRATE Negative (NEGATIVE); URINE PROTEIN(semi-quant) 2+ (NEGATIVE); URINE UROBILINOGEN Negative (NEGATIVE)
[2021-01-20] MEDS ORDERED: OMNICEF 300MG300 MG PO (21:52)
[2021-01-20 22:25] VITALS: BP 137/98; PULSE 75; TEMP 98
[2021-03-17] MEDS ORDERED: TRELEGY ELLIPT1 EACH IH (18:37)
== END 2021-01-20 22:30 | disposition home or self-care (01) ==
LOC: COL.ER 18:42
PROVIDERS: Nurse Practitioner Primary Care
DX: S80.02XA Contusion of left knee, initial encounter (principal); R51.9 Headache, unspecified; I11.0 Hypertensive heart disease with heart failure; I50.9 Heart failure, unspecified; F32.9 Major depressive disorder, single episode, unspecified; K21.9 Gastro-esophageal reflux disease without esophagitis; F43.10 Post-traumatic stress disorder, unspecified; M19.91 Primary osteoarthritis, unspecified site; R56.9 Unspecified convulsions; Z79.899 Other long term (current) drug therapy; V29.9XXA Motorcycle rider (driver) (passenger) injured in unspecified traffic accident, initial encounter
CPT/HCPCS: J1885

== ENCOUNTER 2021-01-26 04:31 | Emergency (ER) | payer MEDICARE, MEDICAID ==
[~2021-01-26] VITALS: Ht 175.3 cm; Wt 86.4 kg
[~2021-01-26 04:31] MED LIST changes: +OMNICEF 300MG300 MG PO
[2021-01-26 05:32] VITALS: TEMP 98.4
[2021-01-26 05:33] LABS: BASO # 0.1 (0.0-0.2); BASO % 1.3 % (0.0-2.0); EOS # 0.1 (0.0-0.7); EOS % 2.2 % (0-4.0); GRAN # 3.3 (1.4-6.5); GRAN % 51.8 % (42.2-75.2); HEMOGLOBIN 12.1 g/dl (13.5-18.0); MEAN CELL VOLUME 88 fl (80.0-100.0); MEAN CORPUSCULAR HEMOGLOBIN 29 pg (27.0-31.0); MEAN CORPUSCULAR HGB CONC 33 g/dl (33.0-37.0); MEAN PLATELET VOLUME 8.6 fl (7.4-10.4); MONO # 0.8 (0.1-0.6); MONO % 12.2 % (1.7-9.3); PLATELET COUNT 242 K/mm3 (130-400); REDCELL DISTRIBUTION WIDTH-CV 14.4 % (11.5-14.5)
[2021-01-26 05:44] LABS: ALANINE AMINOTRANSFERASE 23 U/L (4-49); ALBUMIN 4.4 gm/dL (3.5-5.0); ALKALINE PHOSPHATASE 52 U/L (50-136); ANION GAP 8 mmol/L (7-16); AST,SGOT 22 U/L (15-37); BILIRUBIN,TOTAL 0.3 mg/dL (0.0-1.0); BLOOD UREA NITROGEN 9 mg/dL (9-20); CALCIUM 9.2 mg/dL (8.4-10.2); CARBON DIOXIDE 25 mmol/L (22-30); CHLORIDE 104 mmol/L (98-107); CREATININE, serum 0.99 (0.66-1.25); GLUCOSE 93 mg/dL (74-106); HEMATOCRIT 36.8 % (42.0-52.0); POTASSIUM 3.3 mmol/L (3.4-5.0); SODIUM 136 mmol/L (137-145); TOTAL PROTEIN 7.5 gm/dL (6.4-8.2)
[2021-01-26 05:47] LABS: LIPASE 154 U/L (23-300)
[2021-01-26 05:56] LABS: TROPONIN-I < 0.012 ng/mL (0.000-0.035)
[2021-01-26 06:14] LABS: COLLECTION METHOD IN
[2021-01-26 06:20] LABS: PH 6 (5-8); SQUAMOUS EPITHELIAL None Seen /hpf; URINE APPEARANCE Hazy; URINE BACTERIA Rare /hpf; URINE BILIRUBIN Negative (NEGATIVE); URINE BLOOD Negative (NEGATIVE); URINE COLOR Yellow; URINE GLUCOSE Negative (NEGATIVE); URINE KETONE Negative (NEGATIVE); URINE LEUKOCYTE ESTERASE 2+ (NEGATIVE); URINE NITRATE Positive (NEGATIVE); URINE PROTEIN(semi-quant) Negative (NEGATIVE); URINE RBC 0-2 /hpf; URINE UROBILINOGEN Negative (NEGATIVE)
[2021-01-26] MEDS ORDERED: NORCO 325 MG-51 TAB PO (07:09)
[2021-01-26 07:10] LABS: INR 1.2 (0.8-3.0); PROTHROMBIN TIME 13.4 SECONDS (9.7-12.8)
[2021-01-26 07:35] VITALS: BP 138/84; PULSE 87
[2021-03-17] MEDS ORDERED: TRELEGY ELLIPT1 EACH IH (18:37)
== END 2021-01-26 07:35 | disposition home or self-care (01) ==
LOC: COL.ER 04:31
PROVIDERS: Emergency Medicine
DX: G89.29 Other chronic pain (principal); R10.9 Unspecified abdominal pain; R11.2 Nausea with vomiting, unspecified; R19.7 Diarrhea, unspecified; I10 Essential (primary) hypertension; G40.909 Epilepsy, unspecified, not intractable, without status epilepticus; I25.10 Atherosclerotic heart disease of native coronary artery without angina pectoris; J45.909 Unspecified asthma, uncomplicated; F32.9 Major depressive disorder, single episode, unspecified; F41.9 Anxiety disorder, unspecified; F43.10 Post-traumatic stress disorder, unspecified; K21.9 Gastro-esophageal reflux disease without esophagitis; Z86.73 Personal history of transient ischemic attack (TIA), and cerebral infarction without residual deficits; I25.2 Old myocardial infarction; Z88.8 Allergy status to other drugs, medicaments and biological substances; Z88.0 Allergy status to penicillin; Z88.1 Allergy status to other antibiotic agents; Z79.899 Other long term (current) drug therapy; Z79.82 Long term (current) use of aspirin; Z79.51 Long term (current) use of inhaled steroids
CPT/HCPCS: J1170; J1200; J2405; J7030; Q9967

== ENCOUNTER 2021-02-14 08:50 | Observation (INO) | payer MEDICARE, MEDICAID ==
[2021-02-14] VITALS (10 sets, daily range): BP systolic 93–133; BP diastolic 36–69; PULSE 95–126; TEMP 98.2–98.9
[~2021-02-14] VITALS: Ht 175.3 cm; Wt 103.6 kg
[2021-02-14 09:23] LABS: COLLECTION METHOD IN
[2021-02-14 09:26] LABS: HEMOGLOBIN 11.1 g/dl (13.5-18.0); MEAN CELL VOLUME 92 fl (80.0-100.0); MEAN CORPUSCULAR HEMOGLOBIN 30 pg (27.0-31.0); MEAN CORPUSCULAR HGB CONC 32 g/dl (33.0-37.0); MEAN PLATELET VOLUME 8.8 fl (7.4-10.4); PLATELET COUNT 261 K/mm3 (130-400); RED BLOOD COUNT 3.75 M/mm3 (4.20-5.60); REDCELL DISTRIBUTION WIDTH-CV 13.2 % (11.5-14.5)
[2021-02-14 09:29] LABS: PH 6 (5-8); SQUAMOUS EPITHELIAL None Seen /hpf; URINE APPEARANCE Clear; URINE BACTERIA Rare /hpf; URINE BILIRUBIN Negative (NEGATIVE); URINE BLOOD 3+ (NEGATIVE); URINE COLOR Straw; URINE GLUCOSE Negative (NEGATIVE); URINE KETONE Negative (NEGATIVE); URINE LEUKOCYTE ESTERASE Trace (NEGATIVE); URINE NITRATE Negative (NEGATIVE); URINE PROTEIN(semi-quant) Negative (NEGATIVE); URINE RBC 0-2 /hpf; URINE UROBILINOGEN Negative (NEGATIVE)
[2021-02-14 09:32] LABS: HEMATOCRIT 34.4 % (42.0-52.0)
[2021-02-14 09:37] LABS: ALBUMIN 3.7 gm/dL (3.5-5.0); BILIRUBIN,TOTAL 0.2 mg/dL (0.0-1.0); CALCIUM 8.3 mg/dL (8.4-10.2); CREATININE, serum 1.19 (0.66-1.25); POTASSIUM 4.9 mmol/L (3.4-5.0); TOTAL PROTEIN 6.7 gm/dL (6.4-8.2)
[2021-02-14 09:59] LABS: BAND 7 % (0-10); BASOPHIL 1 % (0-2); LYMPHOCYTE 19 % (20.0-51.0); MYELOCYTE 2 % (0-0); NEUTROPHILS 65 % (42.0-75.2); PLATELET ESTIMATE NORMAL (NORMAL)
[2021-02-14 10:07] LABS: TSH w REFLEX 4.12 uIU/mL (0.465-4.680)
[2021-02-14 12:11] LABS: ARTERIAL BLD GAS TCO2 CT 21.1; ARTERIAL BLOOD GAS BASE EXCESS -4.5 (-2-2); ARTERIAL BLOOD GAS HCO3 20.1 meq/L (22-26); ARTERIAL BLOOD GAS PCO2 35.4 mmHg (35-45); ARTERIAL BLOOD GAS PO2 59.6 mmHg (80-100); ARTERIAL BLOOD GAS pH 7.37 (7.35-7.45)
[2021-02-14] MEDS ORDERED: TOPROL XL 50MG50 MG PO (17:40)
--- NOTE | 2021-02-14 18:20 | NUR ---
Pt arrived to medical unit room 310 around 1600. Admission assessments and med rec complete. Hospital gown and socks brought to room and pt refused to change. Room door left open at pt request and seizure precautions initiated.
--- NOTE | 2021-02-14 22:36 | NUR ---
Judah refused to get swab for Respiratory Virus panel. She is not interested for that test.
--- NOTE | 2021-02-14 22:55 | NUR ---
RAQUEL Jarrett at bedside. Stat verbal order for Ativan 1mg now received and verified. Given at this time by Tish BOTELLO.
--- NOTE | 2021-02-14 23:34 | NUR ---
Martina had a seizure around 2252. She knows that she will having seizure she verbalized it. I called RAQUEL Limon and she came up in the room right away. Ativan ordered 1mg IVP. Seizure activity lasted for about 10 minutes. Her pupil is normal she was talking while shes having seizure if you ask her she answer you back but she is stiff and seizing. After the seizure activy her blood pressure 102/63 and after 5 min it was 95/42. NS was ordered at 100ml/hr. She asked for Morphine and I said that she can't have it because her blood pressure is low. She wanted me to write on the board what time she can have it. and I repeat it again to her that I can't give it to her we need her BP to come up before I give it to her and she is not happy with that. she asked for Benadryl instead. Its order PRN every 6 hours and after i administered it she wants me to right it on borad what time her next dose will be. Continue to monitor.
--- NOTE | 2021-02-15 01:14 | NUR ---
Bernadette is in evry 15minutes suicidal assessment. Per protocol patient that is in SI precautions should removed all belongings inside the room and that's include her cellphone and tablet. She refused to get remove all that stuffs.Charge Nurse talked to her about it and she refused still. RAQUEL Limon is aware.
[2021-02-15 02:57] VITALS: BP 96/46; PULSE 96; TEMP 98.2
[2021-02-15 07:05] LABS: MEAN CELL VOLUME 93 fl (80.0-100.0); MEAN CORPUSCULAR HGB CONC 32 g/dl (33.0-37.0); MEAN PLATELET VOLUME 9.1 fl (7.4-10.4); PLATELET COUNT 286 K/mm3 (130-400); RED BLOOD COUNT 3.31 M/mm3 (4.20-5.60); REDCELL DISTRIBUTION WIDTH-CV 13.2 % (11.5-14.5)
[2021-02-15 07:12] LABS: HEMATOCRIT 30.7 % (42.0-52.0); HEMOGLOBIN 9.9 g/dl (13.5-18.0); MEAN CORPUSCULAR HEMOGLOBIN 30 pg (27.0-31.0)
--- NOTE | 2021-02-15 08:00 | NUR ---
Patient laying in bed, resting. Easily awakened with verbal command, but falls back to sleep. VSS. IV CDI, fluids infusing. [address] No further needs expressed from the patient. Call light within reach
[2021-02-15 08:02] VITALS: BP 98/53; PULSE 78; PULSE 80; TEMP 98.6
[2021-02-15 08:31] LABS: BAND 8 % (0-10); LYMPHOCYTE 11 % (20.0-51.0); METAMYELOCYTE 3 % (0-0); NEUTROPHILS 76 % (42.0-75.2)
[2021-02-15 08:33] LABS: HYPOCHROMIA 1+
--- NOTE | 2021-02-15 11:45 | NUR ---
Discharge paperwork reviewed with the patient. Patient verbalized that she would not discontinue any medications that the hospitalist recommended stopped and that she would see her PCP. Port deaccesses with heparin 500ml, band aid applied. Patient did not want nursing staff to make f/u appointments, she wanted to get out of the hospital as soon as she could. No further needs expressed from the patient. Patient ambulated independently to the ER entrance with nursing staff with discharge paperwork and personal belongings.
--- NOTE | 2021-02-15 12:43 | NUR ---
Certified Paralegal stopped by before patient was discharged and nothing was needed.
[2021-03-17] MEDS ORDERED: TRELEGY ELLIPT1 EACH IH (18:37)
== END 2021-02-15 11:45 | disposition home or self-care (01) ==
LOC: COL.ER 08:50 → MEDICAL 14:39
PROVIDERS: Emergency Medicine; ADMIT Internal Medicine
DX: J95.89 Other postprocedural complications and disorders of respiratory system, not elsewhere classified (principal); R09.02 Hypoxemia; D72.829 Elevated white blood cell count, unspecified; I10 Essential (primary) hypertension; G40.89 Other seizures; K31.9 Disease of stomach and duodenum, unspecified; N39.0 Urinary tract infection, site not specified; G47.33 Obstructive sleep apnea (adult) (pediatric); F60.3 Borderline personality disorder; F32.9 Major depressive disorder, single episode, unspecified; F41.9 Anxiety disorder, unspecified; F43.10 Post-traumatic stress disorder, unspecified; Z99.89 Dependence on other enabling machines and devices; Z79.899 Other long term (current) drug therapy; Z20.822 Contact with and (suspected) exposure to COVID-19; Z79.82 Long term (current) use of aspirin
CPT/HCPCS: 99222-AI; 99239; A9284; G0378; J1200; J1650; J1885; J2060; J2270; J7030; J7120

== ENCOUNTER 2021-02-19 14:48 | Outpatient (CLI) | payer MEDICARE, MEDICAID ==
[~2021-02-19] VITALS: Ht 175.3 cm; Wt 96.8 kg
[2021-02-19 15:30] VITALS: BP 122/76; PULSE 113; TEMP 98.4
[2021-03-17] MEDS ORDERED: TRELEGY ELLIPT1 EACH IH (18:37)
--- NOTE | 2021-04-17 16:51 | NUR ---
Pt did not show for apt on 04/16/21.Per pt he is now [facility] in [place]
== END 2021-02-19 16:30 | disposition home or self-care (01) ==
LOC: EUO 14:48
DX: Z45.2 Encounter for adjustment and management of vascular access device (principal)
CPT/HCPCS: J1644

== ENCOUNTER 2021-03-11 13:35 | Emergency (ER) | payer MEDICARE, MEDICAID ==
[~2021-03-11] VITALS: Ht 175.3 cm; Wt 104.5 kg
[2021-03-11 14:11] VITALS: BP 143/84; PULSE 74; TEMP 98.4
[2021-03-17] MEDS ORDERED: TRELEGY ELLIPT1 EACH IH (18:37)
== END 2021-03-11 14:20 | disposition left against medical advice (07) ==
LOC: COL.ER 13:35
DX: R51.9 Headache, unspecified (principal)

== ENCOUNTER 2021-03-11 16:21 | Emergency (ER) | payer MEDICARE, MEDICAID ==
[~2021-03-11] VITALS: Ht 175.3 cm; Wt 104.5 kg
[2021-03-11 16:21] VITALS: TEMP 98.3
[2021-03-11 18:41] VITALS: BP 135/75; PULSE 89
[2021-03-17] MEDS ORDERED: TRELEGY ELLIPT1 EACH IH (18:37)
== END 2021-03-11 18:42 | disposition home or self-care (01) ==
LOC: COL.ER 16:21
DX: R56.9 Unspecified convulsions (principal); G47.33 Obstructive sleep apnea (adult) (pediatric); I10 Essential (primary) hypertension; F41.1 Generalized anxiety disorder; F32.9 Major depressive disorder, single episode, unspecified; Z99.89 Dependence on other enabling machines and devices; Z79.82 Long term (current) use of aspirin; Z79.899 Other long term (current) drug therapy
CPT/HCPCS: J1885; J2060

== ENCOUNTER 2021-03-18 10:51 | Emergency (ER) | payer MEDICARE, MEDICAID ==
[~2021-03-18] VITALS: Ht 175.3 cm; Wt 100.0 kg
[~2021-03-18 10:51] MED LIST changes: +TRELEGY ELLIPT1 EACH IH
[2021-03-18 10:54] VITALS: TEMP 98.1
[2021-03-18 11:23] LABS: BASO # 0.1 (0.0-0.2); BASO % 0.9 % (0.0-2.0); EOS # 0.1 (0.0-0.7); EOS % 1.6 % (0-4.0); GRAN # 5.1 (1.4-6.5); GRAN % 68.6 % (42.2-75.2); HEMOGLOBIN 11.5 g/dl (13.5-18.0); LYMPH # 1.4 (1.2-3.4); LYMPH % 18.8 % (20.0-51.0); MEAN CELL VOLUME 92 fl (80.0-100.0); MEAN CORPUSCULAR HEMOGLOBIN 29 pg (27.0-31.0); MEAN CORPUSCULAR HGB CONC 32 g/dl (33.0-37.0); MEAN PLATELET VOLUME 9.1 fl (7.4-10.4); MONO # 0.7 (0.1-0.6); MONO % 9.3 % (1.7-9.3); PLATELET COUNT 238 K/mm3 (130-400); RED BLOOD COUNT 3.94 M/mm3 (4.20-5.60); REDCELL DISTRIBUTION WIDTH-CV 12.4 % (11.5-14.5)
[2021-03-18 11:27] LABS: HEMATOCRIT 36.2 % (42.0-52.0)
[2021-03-18 11:32] LABS: ALANINE AMINOTRANSFERASE 22 U/L (4-49); ALBUMIN 3.6 gm/dL (3.5-5.0); ALKALINE PHOSPHATASE 48 U/L (50-136); ANION GAP 7 mmol/L (7-16); AST,SGOT 22 U/L (15-37); BILIRUBIN,TOTAL < 0.1 mg/dL (0.0-1.0); BLOOD UREA NITROGEN 10 mg/dL (9-20); CARBON DIOXIDE 21 mmol/L (22-30); CHLORIDE 111 mmol/L (98-107); CREATININE, serum 1.01 (0.66-1.25); GLUCOSE 101 mg/dL (74-106); SODIUM 138 mmol/L (137-145); TOTAL PROTEIN 6.8 gm/dL (6.4-8.2)
[2021-03-18 11:44] LABS: CREATINE KINASE 86 U/L (55-170)
[2021-03-18 11:48] LABS: PROLACTIN 21.9 ng/mL (3.7-17.9)
[2021-03-18 11:51] LABS: TROPONIN-I < 0.012 ng/mL (0.000-0.035)
[2021-03-18 15:47] VITALS: BP 117/74; PULSE 87
== END 2021-03-18 15:49 | disposition home or self-care (01) ==
LOC: COL.ER 10:51
PROVIDERS: Physician Assistant
DX: R56.9 Unspecified convulsions (principal); I10 Essential (primary) hypertension; F41.9 Anxiety disorder, unspecified; F32.9 Major depressive disorder, single episode, unspecified; I25.2 Old myocardial infarction; Z79.82 Long term (current) use of aspirin; Z79.84 Long term (current) use of oral hypoglycemic drugs; Z79.899 Other long term (current) drug therapy
CPT/HCPCS: J2060; J2250; J2405; J7030

== ENCOUNTER 2021-03-19 07:00 | Outpatient (RCR) | payer MEDICARE, MEDICAID ==
[2021-03-17 18:38] VITALS: BP 107/62; PULSE 94; TEMP 98.6
[2021-03-18 07:05] VITALS: BP 111/72; PULSE 72; TEMP 98.2
--- NOTE | 2021-03-18 17:08 | NUR ---
Pt reports visit to ER and received iv fluids while there.pt not comming to this evening's apt.
[~2021-03-19] VITALS: Ht 175.3 cm; Wt 97.6 kg
[2021-03-19 08:00] VITALS: BP 112/72; PULSE 77; TEMP 97.4
== END 2021-03-19 08:43 ==
LOC: EUO 07:00
DX: N32.89 Other specified disorders of bladder (principal); N39.0 Urinary tract infection, site not specified
CPT/HCPCS: J1644; J7030

== ENCOUNTER 2021-04-01 16:31 | Emergency (ER) | payer MEDICARE, MEDICAID ==
[~2021-04-01] VITALS: Ht 175.3 cm; Wt 100.0 kg
[2021-04-01 16:37] VITALS: TEMP 97.9
[2021-04-01] MEDS ORDERED: EC-NAPROSYN375 MG PO (17:04)
[2021-04-01 17:16] VITALS: BP 122/77; PULSE 74
== END 2021-04-01 17:16 | disposition home or self-care (01) ==
LOC: COL.ER 16:31
DX: M26.602 Left temporomandibular joint disorder, unspecified (principal); F32.9 Major depressive disorder, single episode, unspecified; R56.9 Unspecified convulsions; Z79.899 Other long term (current) drug therapy

== ENCOUNTER 2021-08-19 13:18 | Day surgery (SDC) | payer MEDICARE, MEDICAID ==
[2021-08-19] VITALS (11 sets, daily range): BP systolic 92–127; BP diastolic 43–71; PULSE 58–94; TEMP 97.7–98.4
[~2021-08-19] VITALS: Ht 175.3 cm; Wt 95.0 kg
[~2021-08-19 13:18] MED LIST changes: +DEPAKOTE 250MG250 MG PO; -DEPAKOTE ER 50500 MG PO; +EC-NAPROSYN375 MG PO; -GLUCOPHAGE XR500 M1 PO; +GLUCOPHAGE500 MG/TAB PO; +LOPRESSOR 550 MG/TAB PO
--- NOTE | 2021-08-19 17:55 | NUR ---
PATIENT ADMITED INTO ROOM 350 POST OP CYSTO WITH SUPER PUBIC CATH. PATIENT IS A&O. VSS. PATIENT VERBALLY EXPRESSES HE WANTS TO STAY THE NIGHT AND LIED ABOUT HAVING A RIDE TONIGHT. STAFF HAD TO SEND RIDE AWAY AND WILL SCHEDULE TRANSPORTATION FOR DISCHARGE IN THE MORNING. PACU REPORTS PSEUDOSEIZURES X3 WHERE PATIENT WAS ABLE TO SWALLOW HIS ORAL SECRETIONS AND WOULD MAKE EYE CONTACT WITH STAFF. NO HOME SEIZURE MEDS NOTED ON MED REC. RIGHT CHEST PORT ACCESSED WITH IV FLUIDS INFUSING. NO C/O N/V. LIQUIDS AT BEDSIDE. HEAD TO TOE ASSESSMENT COMPLETE. SCD'S TO BLE. ORIENTED TO ROOM. CALL LIGHT IN REACH.
--- NOTE | 2021-08-19 18:15 | NUR ---
PATIENT CALLED OUT TOLD THE NURSE TO COME BACK TO HIS ROOM. UPON ENTERING ROOM PATIENT STATES HE NEEDS PAIN MEDS BC HE FEELS A SEIZURE COMING ON. GAVE PRN VALIUM PER ORDERS. PATIENT STATES, "THAT DOESN'T WORK". NURSING ASKED PATIENT WHAT HE HAS TAKEN IN THE PAST FOR HIS SEIZURES AND HE AGAIN SAID "NOTHING". PATIENT SAYS HE SAW A NEUROLOGIST IN THE PAST AND SAID "I GOT TIRED OF BEING TOLD IM FAKING IT".
--- NOTE | 2021-08-19 20:30 | NUR ---
Pt. laying in bed. Pt. is A&OX3, assessment complete. Pt. reports pain at a 6 on pain scale, will give pain meds per orders.
--- NOTE | 2021-08-19 20:40 | NUR ---
PT REPORTS SEVERE PAIN, BUT DOES NOT DISPLAY PHYSICAL SIGNS OF PAIN.
[2021-08-20 02:25] VITALS: BP 113/71; PULSE 91
[2021-08-20 03:46] VITALS: BP 118/68; PULSE 84; TEMP 97.9
--- NOTE | 2021-08-20 07:00 | NUR ---
, UROLOGY P.A. AND RN AT BEDSIDE MAKING ROUNDS. ANSWERED QUESTIONS AND EXPLAIN DISCHARGE PRESCRIPTIONS, ETC. PHYSICIAN WENT OVER DISCHARGE PLAN FOR THIS AM, DISCUSSED YESTERDAY FOR 8AM. THE CHEF'S ASSISTANT ARRANGE A CAB SUPERVISOR RESEARCH KENNEL FOR THIS AM AND PATIENT IS TO BE DOWN STAIRS READY. PATIENT SEEMS HESITANT TO DISCHARGE. PATIENT ASKING IV ABX AT HOME AND A PRESCRIPTION FOR NARCOTICS ON DISCHARGE, SEE DISCHARGE PRESCRIPTIONS FOR ORAL ABX & PAIN MEDS FOR DISCHARGE.
--- NOTE | 2021-08-20 07:30 | NUR ---
PATIENT REQUESTED TO LEAVE HIS PORT ACCESSED, NURSE EDUCATED PATIENT ABOUT LIABILITY. PORT DE-ACCESSED PER PROTOCOL. PATIENT GETTING DRESSED BUT MAKING SEVERAL REQUESTS BEFORE DISCHARGE SUCH HE WANTS TO GO FOR A WALK, THEN REQUESTED IV OR IM PAIN MEDS FOR HIS DRIVE. NURSING NOTIFIED , SEE ORDERS FOR ORAL MORPHINE, GIVEN.
[2021-08-20] MEDS ORDERED: MORPHINE 1515 MG/TAB PO (07:34)
[2021-08-20] MEDS ORDERED: MACROBID 1100 MG/CAP PO (07:34)
--- NOTE | 2021-08-20 07:40 | NUR ---
ATTEMPTED TO CALL CAB COMPANY TO ENSURE 8AM ARRIVAL FOR TAMPING MACHINE OPERATOR ROAD FORMS. NO ANSWER. MILLING MACHINE SET UP OPERATOR NOTIFIED. TAMPING MACHINE OPERATOR ROAD FORMS WAS ARRANGED BY MILLING MACHINE SET UP OPERATOR YESTERDAY. NURSING INSTRUCTED TO STICK TO THE DISCHARGE PLAN AND TAKE THE PATIENT TO THE PATIENT ENTERENCE, WHERE HE WAS DROPPED OFF FOR SURGERY, PLANNED.
--- NOTE | 2021-08-20 08:25 | NUR ---
AFTER LETTING THE PHONE RING FOR A VERY LONG TIME, THE CAB COMPANY FINALLY ANSWERED. THE LADY WHO ANSWERED SAID SHE HAD NO SCHEDULED PICK UPS IN [place] THIS AM SO THE MANAGER PART MUST HAVE MADE ARRANGMENTS WITH ANOTHER [employer] COMPANY. MANAGER PART NOTIFIED. PATIENT HAS BEEN DISCHARGED AND IS NOW WAITING IN THE LOBBY. MANAGER PART IS CALLING THE CAB COMPANY.
--- NOTE | 2021-08-20 11:10 | NUR ---
family service caseworker arranged for patient's medicaid transport home to [place] this morning. Worker met with patient and advised of the above information. Patient will return home where he resides in an apartment in [place], [place]. No further unmet needs identified at this time.
== END 2021-08-20 08:30 | disposition home or self-care (01) ==
LOC: SDCO 13:18 → SURG 17:55 → SDCO 08-20 08:30
DX: N31.1 Reflex neuropathic bladder, not elsewhere classified (principal); N39.41 Urge incontinence; R33.9 Retention of urine, unspecified; R10.2 Pelvic and perineal pain; I25.119 Atherosclerotic heart disease of native coronary artery with unspecified angina pectoris; I11.0 Hypertensive heart disease with heart failure; I25.2 Old myocardial infarction; I50.9 Heart failure, unspecified; G25.81 Restless legs syndrome; R56.9 Unspecified convulsions; E11.8 Type 2 diabetes mellitus with unspecified complications; G47.33 Obstructive sleep apnea (adult) (pediatric); F64.8 Other gender identity disorders; J45.909 Unspecified asthma, uncomplicated; F41.9 Anxiety disorder, unspecified; K21.9 Gastro-esophageal reflux disease without esophagitis; F32.A Depression, unspecified; F39 Unspecified mood [affective] disorder; M19.90 Unspecified osteoarthritis, unspecified site; Z79.51 Long term (current) use of inhaled steroids; Z79.84 Long term (current) use of oral hypoglycemic drugs; Z79.899 Other long term (current) drug therapy; Z87.440 Personal history of urinary (tract) infections; Z79.1 Long term (current) use of non-steroidal anti-inflammatories (NSAID)
CPT/HCPCS: A4215; J0585; J0690; J1100; J2060; J2270; J2405; J2704; J3010; J7120

== ENCOUNTER 2022-03-26 13:12 | Day surgery (SDC) | payer MEDICARE, MEDICAID ==
[2022-03-26] VITALS (10 sets, daily range): BP systolic 108–135; BP diastolic 61–84; PULSE 80–97; TEMP 97.8–98.2
[~2022-03-26] VITALS: Ht 175.3 cm; Wt 101.4 kg
[~2022-03-26 13:12] MED LIST changes: +00186-0372-20 IH; +MELATIN 3 MG-11 TAB PO; +MORPHINE 1515 MG/TAB PO; +PRINIVIL2.5 MG PO; +PYRIDIUM200 M1 PO; +SEROQUEL300 MG PO; +TOPROL XL 25MG25 MG PO; +UREX1 GM PO
--- NOTE | 2022-03-26 17:10 | NUR ---
arrived to room per bed from PACU, awake and alert, IVinfusing per dial-a-flow at 100ml/hr, O2 on at 1L/NC, has suprapubic cath that is clamped and site is CD&I, RXM completed, will provide him something to drink and a popsicle per her request
[2022-03-26] MEDS ORDERED: SEROQUEL400 MG PO (17:17)
--- NOTE | 2022-03-26 17:30 | NUR ---
full assessment completed, see interventions for further info, had popsicle and tolerated well
[2022-03-26] MEDS ORDERED: MORPHINE 1515 MG/TAB PO (17:54)
--- NOTE | 2022-03-26 18:00 | NUR ---
c/o terrible pain but is resting in bed without moaning or grimacing, medicated with scheduled toradol and roxicodone 5mg po, now states that he takes morphine 15mg po at home q8h, will monitor and notify the dr if pain is not controlled
--- NOTE | 2022-03-26 18:30 | NUR ---
continues to c/o pain and medicated with roxicodone 5mg second tab,
--- NOTE | 2022-03-26 18:46 | NUR ---
ambulating in alaniz with OVERHAULER, bedside shift report given to AYAN Pacheco
--- NOTE | 2022-03-26 19:10 | NUR ---
Dr Johnson notified regarding his pain managment
--- NOTE | 2022-03-26 19:46 | NUR ---
PT REPORTS SIGNIFICANT PAIN TO LOWER ABD. MORPHINE 2MG IVP GIVEN AT THIS TIME. EATING DINNER TRAY WITHOUT N/V. IVF CAPPED.
--- NOTE | 2022-03-26 22:15 | NUR ---
PT COMPLAINS OF DIFFUSE ITCHING WITHOUT REDNESS OR HIVES.
--- NOTE | 2022-03-26 22:32 | NUR ---
BENADRYL 25MG SLOW IVP FOR ITCHING. ORDER RECEIVED FROM DR RODAS. IV VANCO COMPLETE.
--- NOTE | 2022-03-26 23:15 | NUR ---
PT AWAKE, HAS EMPTIED SUPRAPUBIC X1 FOR 250CC TEA COLORED URINE. IS ALERT AND ORIENTED X4. DRINKING ORAL FLUIDS WELL. SCDS ON. SUPRAPUBIC CATH CLAMPED PER PTS HOME ROUTINE. MEDICATED WITH MORPHINE 2MG IVP AND SCHEDULED TORADOL AT THIS TIME.
[2022-03-27 03:10] VITALS: BP 119/73; PULSE 79; TEMP 97.9
--- NOTE | 2022-03-27 03:22 | NUR ---
PT MEDICATED WITH MORPHINE IVP FOR ABD PAIN. PT EATING SNACKS AND DRINKING FLUIDS WITHOUT PROBLEM.
--- NOTE | 2022-03-27 06:31 | NUR ---
SCHEDULED AM MEDS GIVEN. PT ASKING FOR MORPHINE, TOO EARLY.
[2022-03-27 08:31] VITALS: BP 151/83; PULSE 92; TEMP 98.2
--- NOTE | 2022-03-27 11:48 | NUR ---
caseworker intake met with patient to complete intake and discuss discharge plan. Patient who identifies as "Josette" reports that she lives at the [facility] in [place] in their assisted living unit. Patient is independent with her ADL's and utilizes a cane to assist with mobility. Patient states that she does not have a day time oxygen need but does utilize a CPAP at night. PCP is Dr. Johnny Mai in [place] and she gets her medications through [facility] in [place]. Patient does not have a DPOA-HC established. She is not legally and has no children. Her father Nestor ([phone]) is her established legal next of kin. Patient states her insurance drove her up here from [place] and will be the one to transport back to her living facility. Patient's [facility] transportation contacted and states they have until 1330 to picky the patient up. Confirmation # [id number]. ([id number]) patient's insurance contacted me stating they were unable to secure transportation at this time but have arranged for [employer] to transport the patient and will be here at 1230 for pickler helper. Patient's RN notified. Discharge plan: Back to care facility.
[2022-03-27 12:00] VITALS: BP 138/78; PULSE 96; TEMP 98.3
--- NOTE | 2022-03-27 13:03 | NUR ---
DISCHARGE DISCUSSED WITH PT, ALL QUESTIONS AND CONCERNS WERE ADDRESSED, PT WAS P/U BY [employer] AND TRANSPORTED BACK TO ASSISTED LIVING FACILITY IN [place], PT LEFT WITH ALL HIS BELONGINGS BY WHEELCHAIR TO A [employer] CAR
== END 2022-03-27 13:05 | disposition home or self-care (01) ==
LOC: SDCO 13:12 → SURG 17:10 → SDCO 03-27 13:05
DX: N31.9 Neuromuscular dysfunction of bladder, unspecified (principal); R33.9 Retention of urine, unspecified; G89.29 Other chronic pain; R10.2 Pelvic and perineal pain
CPT/HCPCS: A4215; J0585; J0690; J1170; J1200; J1885; J2250; J2270; J2405; J2704; J3010; J3370; J7050; J7120